=== PATIENT | female | born 1960 | race Caucasian/White ===

== ENCOUNTER → 2022-04-01 | Outpatient (CLI) | payer BC, SELFPAY ==
--- NOTE | 2022-04-01 | CYSPIN_PTH ---
PATIENT: CJ MO LOC: [facility] U#:[id number] AGE/SX: 61/F ROOM: RE04/01/[address]: Dr. Beatrice Haynes MD : 1960 BED: DIS: 04/01/2022 SPEC #: [id number] RECD: 04/02/22 08:42 STATUS: DEVON REQ #: [id number] FELIPE: 04/01/22 00:[address]: Beatrice Haynes DEPT: CYTOLOGY RECD BY: Luis Enrique Lehman ENTERED: 04/02/22 08:42 SP TYPE: CYSPIN FL OTHR DR: No Primary Care Phys Tissues: Urine Procedures: Pap Stain (control) Special Stain Group II Cytospin Fluid HEADER OPERATION: Not noted PRE-OP DIAGNOSIS: Gross hematuria TISSUE SUBMITTED: Urine for cytology DIAGNOSIS CYTOLOGY Urine for cytology (cytospin): Negative for malignant cells. See comment. AM:[email or web address] 04/02/2022 COMMENT The specimen primarily contains mesothelial cells. Clinical correlation is suggested. CYTOLOGY STUDY Slides are reviewed. CYTOLOGY GROSS Received is 15 ml of light yellow cloudy fluid labeled with the patient's name and and designated per the requisition as urine. Submitted for cytology preparation. / ewelina 04/01/2022 TC:5 CPT: 35143
[2022-04-01 16:33] LABS: Cytology, Body Fluid / CSF SEE PATHOLOGY REPORT
== END | disposition home or self-care (01) ==
PROVIDERS: Referring Provider Urology; Visit Provider Urology
DX: R31.0 Gross hematuria (principal)
CPT/HCPCS: 88108; 88313

== ENCOUNTER → 2022-04-15 | Outpatient (CLI) | payer BC, SELFPAY ==
--- NOTE | 2022-04-15 10:40 | RAD_ITS ---
INDICATION: L kidney stone EXAMINATION/TECHNIQUE: X-RAY - XR Abdomen 1 View COMPARISON: None FINDINGS: BOWEL GAS PATTERN: Non-obstructive. No bowel or stomach distention. FREE AIR: Not assessed on a single supine view. CALCIFICATIONS: 2 mm calcific density in the left hemiabdomen projecting over the left lower renal pole. BONES AND SOFT TISSUES: No acute pathology. OTHER: Surgical clips are seen within the pelvis. RAD/Abdomen Single View IMPRESSION: 2 mm calcific density in the left hemiabdomen projecting over the left lower renal pole is likely a punctate left renal calculus. This could also relate to calcification in the feces in the overlying large bowel. Electronically Signed: Arnie Purcell, at 15:55 EDT ,
== END | disposition home or self-care (01) ==
LOC: MTRAD 10:35
PROVIDERS: Referring Provider Urology; Visit Provider Urology
DX: N20.0 Calculus of kidney (principal)
CPT/HCPCS: 74018

== ENCOUNTER 2022-05-21 07:09 | Day surgery (SDC) | payer BC, SELFPAY ==
[2022-05-21] VITALS (9 sets, daily range): BP systolic 104–122; BP diastolic 35–76; PULSE 60–64; RESP 16; TEMP 36.1–36.6; O2SAT 91–99; BMI 30.6
[2022-05-21] MEDS: Lactated Ringers 1,000 ML 15 ML IV (07:37)
[2022-05-21] MEDS: Cefazolin 2 GM in 0.9% Normal Saline 100 ML IV (08:48)
[2022-05-21] MEDS: Lubricating Jelly 60 GM Tube 30 GM (09:02)
--- NOTE | 2022-05-21 09:18 | DCINST_ITS ---
Discharge Instructions Diet Discharge Diet: No restrictions Activity Discharge Activity: Return to Normal Activity Dressing / Incision Call your doctor if your incision/area has: Continuous Slow Oozing and Sudden Increased Bleeding Call your doctor if you observe: Fever of 101 or Higher, Inability to urinate and Inability to have a bowel movement Follow Up Care Please Follow Up With: Beatrice Haynes MD When: 2-3 weeks with KUB Test Results: Test results from this visit will be discussed in further detail at your follow- up appointment, if applicable. Discharge Plan Admission Attending Provider: Beatrice Haynes Primary Care Provider: JANEE ARREDONDO Discharge Orders/Prescriptions Prescriptions: New oxycodone-acetaminophen [oxycodone-acetaminophen] 5-325 mg tablet 1 tab PO Q8H PRN PRN (Reason: Pain) 3 Days Qty: 10 0RF phenazopyridine [Pyridium] 200 mg tablet 200 mg PO TID PRN PRN (Reason: Bladder Spasms) 7 Days Qty: 30 0RF Continued verapamil 180 mg tablet extended release 1 tab PO BID pantoprazole 20 mg tablet,delayed release (DR/EC) 20 mg PO BID Label Comments: take 1 tablet by mouth once daily nortriptyline 10 mg capsule 1 cap PO QHS Label Comments: take 1 capsule by mouth at bedtime hyoscyamine sulfate 0.125 mg tablet, sublingual 1 tab sublingual DAILY PRN (Reason: stomach cramps) Label Comments: dissolve 1 tablet under the tongue every 6 hours if needed albuterol sulfate 90 mcg/actuation HFA aerosol inhaler 2 inh INHALATION Q6H PRN (Reason: Wheezing) Label Comments: inhale 2 puffs by mouth every 6 hours if needed atenolol 50 mg tablet 1 tab PO BID loratadine 10 mg Tablet 10 mg PO DAILY Referrals / Follow Up: JANEE ARREDONDO [Other] Disposition Disposition (needs filled in before D/C Order can be placed): Home, Self Care
--- NOTE | 2022-05-21 10:26 | PCM.OPRPT ---
Report of Operation Date of Procedure: 05/21/22 Pre-Operative Diagnosis: Left renal calculus, urethral stenosis Post-Operative Diagnosis: Same Surgery/Procedure Performed:: Urethral dilation, cystoscopy, left renal extracorporal shockwave lithotripsy Surgeon: Beatrice Haynes Type of Anesthesia: General Specimen's removed: None Description of Procedure: The patient is a 61-year-old female who was unable to have a cystoscopy in the office secondary to urethral stricture with a left renal calculus who now presents for definitive intervention. Informed consent was obtained. The patient was taken to the operating room and placed on the lithotripsy table. Anesthesia monitored the head, neck, airway, IV access and vital signs throughout the case. Once anesthesia was appropriate ministered, the patient was placed into dorsal lithotomy position was prepped and draped in usual sterile fashion. The urethra was then sequentially dilated starting with 14 Upper Sorbian sound up to 28 Upper Sorbian. There was cracking of the urethra observed with minimal bleeding. At this time the cystoscope with 70 degree lens was inserted through the urethra under direct visualization into the urinary bladder. The bladder mucosa in its entirety was visualized and found to be without evidence of mass, erythema, ulceration or abnormality. There were no foreign bodies identified. Bilateral ureteral orifices were located in the correct anatomic position on the area of the trigone. At this time the patient's bladder was emptied and the cystoscope was removed. The patient was repositioned on the table and taken out of dorsal lithotomy position. The left lower pole stone was identified and broken with 3000 shocks. It appeared to be well fragmented at the conclusion of the case. She was then awakened and taken to the recovery room in good condition. There were no complications during this procedure. Grafts/Implants Used: None Complications None Admit VTE Documentation VTE Present on Admission: Yes VTE Mechan Device Prophylaxis: SCD's VTE Pharm Prophylaxis ordered?: No Reason prophylaxis not ordered:: Treatment Not Indicated
== END 2022-05-21 12:11 | disposition home or self-care (01) ==
LOC: SDC 07:11 → AC 07:12
PROVIDERS: Referring Provider Urology; Visit Provider Urology
PROC: (CPT 50590; principal; 2022-05-21 08:40)
DX: N20.0 Calculus of kidney (principal); N35.92 Unspecified urethral stricture, female; N39.46 Mixed incontinence; N95.2 Postmenopausal atrophic vaginitis; N39.0 Urinary tract infection, site not specified; R35.1 Nocturia; R39.16 Straining to void; Z87.19 Personal history of other diseases of the digestive system; Z97.3 Presence of spectacles and contact lenses; Z90.710 Acquired absence of both cervix and uterus
CPT/HCPCS: 50590; 53665; 00873; J7120; J2405

== ENCOUNTER → 2022-06-03 | Outpatient (CLI) | payer BC, SELFPAY ==
--- NOTE | 2022-06-03 09:50 | RAD_ITS ---
STUDY: X-RAY - ABDOMEN/PELVIS REASON FOR EXAM: Female, 61 years old. KIDNEY CALCULUS TECHNIQUE: Single AP view of the abdomen / pelvis. COMPARISON: Comparison is made with prior study dated 04/15/2022. FINDINGS: Normal visualized lung bases. There is a moderate amount of colonic fecal material. Surgical clips are seen in the left hemipelvis. The visualized liver, spleen and kidneys are grossly normal in size and morphology. Normal soft tissue structures. Normal visualized osseous structures. RAD/Abdomen Single View IMPRESSION: Normal x-ray examination of the abdomen and pelvis. Electronically Signed: Terrence Mejia MD at 15:16 EDT ,
== END | disposition home or self-care (01) ==
LOC: MTRAD 09:42
PROVIDERS: Referring Provider Urology; Visit Provider Urology
DX: N20.0 Calculus of kidney (principal)
CPT/HCPCS: 74018

== ENCOUNTER → 2025-09-19 | Outpatient (CLI) | payer MEDICARE, OTHER, SELFPAY ==
--- NOTE | 2025-09-19 12:17 | US_ITS ---
PROCEDURE: KIDNEY AND BLADDER 09/19/2025 REASON FOR EXAM: FLANK PAIN TECHNIQUE: Procedure Code: USKI Modality: US Procedure: KIDNEY AND BLADDER COMPARISON: None FINDINGS: Kidneys: Normal renal sizes, parenchymal thicknesses, and echotextures. [place]: No evidence of hydronephrosis. Cysts or Masses: None Other: 6 mm x 10 mm by 5 mm nonobstructive left intrarenal calculus. RIGHT Kidney Size: 11.4 cm x 6.6 cm x 4.3 cm Delete Cortical Thickness (if discernible): 13 mm (>6mm is normal) LEFT Kidney Size: 11.2 cm x 6 cm x 6.2 cm Cortical Thickness (if discernible): 13 mm (>6mm is normal) Urinary bladder: Prevoid volume: 586 mL postvoid volume: 223 mL. US/Kidney and Bladder IMPRESSION: Nonobstructive left intrarenal calculus. Postvoid residual. Reading Location: [id number]
--- NOTE | 2025-09-19 12:17 | US_ITS ---
PROCEDURE: KIDNEY AND BLADDER 09/19/2025 REASON FOR EXAM: FLANK PAIN TECHNIQUE: Procedure Code: USKI Modality: US Procedure: KIDNEY AND BLADDER COMPARISON: None FINDINGS: Kidneys: Normal renal sizes, parenchymal thicknesses, and echotextures. [place]: No evidence of hydronephrosis. Cysts or Masses: None Other: 6 mm x 10 mm by 5 mm nonobstructive left intrarenal calculus. RIGHT Kidney Size: 11.4 cm x 6.6 cm x 4.3 cm Delete Cortical Thickness (if discernible): 13 mm (>6mm is normal) LEFT Kidney Size: 11.2 cm x 6 cm x 6.2 cm Cortical Thickness (if discernible): 13 mm (>6mm is normal) Urinary bladder: Prevoid volume: 586 mL postvoid volume: 223 mL. US/Kidney and Bladder IMPRESSION: Nonobstructive left intrarenal calculus. Postvoid residual. Reading Location: [id number]
== END | disposition home or self-care (01) ==
LOC: US 12:14
PROVIDERS: PCP Nurse Practitioner Family; Referring Provider Urology; Visit Provider Urology
DX: R10.9 Unspecified abdominal pain (principal); Z87.442 Personal history of urinary calculi
CPT/HCPCS: 76770

== ENCOUNTER → 2025-10-02 | Outpatient (CLI) | payer MEDICARE, OTHER, SELFPAY ==
--- NOTE | 2025-10-02 15:30 | CYSPIN_PTH ---
PATIENT: CJ MO LOC: [facility] U#:[id number] AGE/SX: 65/F ROOM: RE10/02/[address]: Dr. Beatrice Haynes MD : 1960 BED: DIS: 10/02/2025 SPEC #: [id number] RECD: 10/02/25 15:30 STATUS: DEVON RETawanna #: [id number] FELIPE: 10/02/25 15:[address]: Beatrice Haynes DEPT: CYTOLOGY RECD BY: Romulo Taylor ENTERED: 10/03/25 10:41 SP TYPE: CYSPIN FL OTHR DR: Ramila Lauren, CLIENT ENGAGEMENT MANAGER-C Tissues: A - Urine Procedures: Pap Stain (control) Special Stain Group II Cytospin Fluid HEADER OPERATION: Not noted PRE-OP DIAGNOSIS: Gross hematuria TISSUE SUBMITTED: A- Urine for cytology - voided DIAGNOSIS CYTOLOGY A. Urine, voided (cytospin): - Atypical urothelial cells. - Acute inflammation. CYTOLOGY STUDY Slides are reviewed. CYTOLOGY GROSS A. Received is 25 ml of yellow-cloudy fluid labeled with the patient's name and and designated per the requisition as urine. Submitted for cytology preparation. 10/03/2025 CPT: 92335
[2025-10-02 18:01] LABS: Cytology, Body Fluid / CSF SEE PATHOLOGY REPORT
--- OUTSIDE RECORDS SUMMARY | 2025-10-02 18:01 | XMS RPT_ITS | CCD ---
Author Organization [facility] Care Team Providers Care Major Assembly Inspector Name Role Phone Derick Martinez MD, Kristi Simon Primary Care Provider LORSON LICENSED LOAN OFFICER-RESIDENTIAL GLAZIER, RAMILA Attending Unavail able LORSON LICENSED LOAN OFFICER-RESIDENTIAL GLAZIER, RAMILA Primary Care Unavail able LORSON LICENSED LOAN OFFICER-RESIDENTIAL GLAZIER, RAMILA Attending Unavail able LORSON LICENSED LOAN OFFICER-RESIDENTIAL GLAZIER, [place] Primary Care Unavail able LORSON LICENSED LOAN OFFICER-RESIDENTIAL GLAZIER, RAMILA Primary Care Physician [place] ANDREWS, Dr. Barron Attending Provider [phone] LORSON LICENSED LOAN OFFICER-RESIDENTIAL GLAZIER, RAMILA Attending Unavail able LORSON LICENSED LOAN OFFICER-RESIDENTIAL GLAZIER, RAMILA Primary Care Unavail able Beatrice Haynes Attending Unavailable Deepalison LAYOUT OPERATOR, [place] Primary Care Unavailable Beatrice Haynes Attending Unavailable Beatrice Haynes Referring Unavailable Beatrice Haynes Attending Unavailable Beatrice Haynes Referring Unavailable Lorson LAYOUT OPERATOR, [place] Primary Care Unavailable LORSON LICENSED LOAN OFFICER-RESIDENTIAL GLAZIER, RAMILA Primary Care Unavail able LORSON LICENSED LOAN OFFICER-RESIDENTIAL GLAZIER, RAMILA Attending Unavail able LORSON LICENSED LOAN OFFICER-RESIDENTIAL GLAZIER, RAMILA Primary Care Unavail able LORSON LICENSED LOAN OFFICER-RESIDENTIAL GLAZIER, RAMILA Attending Unavail able LORSON LICENSED LOAN OFFICER-RESIDENTIAL GLAZIER, RAMILA Primary Care Unavail able LORSON LICENSED LOAN OFFICER-RESIDENTIAL GLAZIER, RAMILA Attending Unavail able LORSON LICENSED LOAN OFFICER-RESIDENTIAL GLAZIER, RAMILA Attending Unavail able LORSON LICENSED LOAN OFFICER-RESIDENTIAL GLAZIER, [place] Primary Care Unavail able Medications Current Medications Medication Drug Class(es) Dates Sig (Normalized) Sig (Original) atenolol 50 mg oral tablet (15 sources) beta-Adrenergic Jany Start: 07-17-2024 End: 02-02-2026 atenolol 50 mg oral tablet Dose : 50 mg = 1 tab(s), Oral, BID, # 200 tab(s), 3 Refill(s), [id number], 165.1, cm, 07/12/25 9:08:00 EDT, Height, kg, 07/12/25 9:08:00 EDT, Dosing Weight Start Date: 07/12/25 Status: Ordered Medication Dispense Status: Completed Quantity: 200.0 Unit: tab(s) Total Allowed Fills: 4 Fills Dispensed: 0 Start: 05-14-2022 Atenolol 50 mg tablet Active 1 {tbl} PO TWICE A DAY May 14, 2022 12:00am Start: 07-26-2021 End: 07-21-2022 atenolol (TENORMIN) 50 mg ta blet TAKE 1 TABLET TWICE A DAY 180 tablet 3 07/21/2022 Active Comment on above: TAKE 1 TABLET TWICE A DAY Berberine Chloride 500 mg capsule (1 source) Start: 07-25-20 Berberine Chloride 500 mg capsule Active mg PO July 25, 2025 12:00am diphenhydrAMINE hydrochloride 25 mg oral capsule (8 sources) Histamine-1 Receptor Antagonist Start: 07-25-20 take 1 capsule by mouth at bedtime as needed Diphenhydramine Hcl (Benadryl) 25 mg capsule Active 25 mg PO AT BEDTIME as needed July 25, 2025 12:00am Start: 10-28-2006 take 1 dose by mouth once daily at bedtime Benadryl Dose : 50 mg =, PO, Once a day (at bedtime), 0 Refill(s), current med (Hx) Start Date: 10/28/06 Status: Ordered Medication Dispense Status: Completed Total Allowed Fills: 1 Fills Dispensed: 0 lisinopril 2.5 mg oral tablet (4 sources) Angiotensin Converting Enzyme Inhibitor Start: 02-07-2025 take 1 tablet by mouth once daily Lisinopril 2.5 mg tablet Active 2.5 mg PO daily July 25, 2025 12:00am Start: 10-18-2024 End: 02-15-2025 lisinopril 20 mg oral tablet Dose : 20 mg = 1 tab(s), Oral, qDay, # 30 tab(s), 3 Refill(s), Pharmacy: [facility] #[id number], 165, cm, 10/18/24 8:56:00 EST, Height, kg, 10/18/24 8:56:00 EST, Dosing Weight Start Date: 10/18/24 Stop Date: 02/15/25 Status: Ordered loratadine 10 mg oral tablet (15 sources) Start: 05-14-2022 take 1 mg by mouth once daily loratadine 10 mg oral tablet mg = tab(s), Oral, qDay, 0 Refill(s) Start Date: 11/11/23 Status: Ordered Medication Dispense Status: Completed Total Allowed Fills: 1 Fills Dispensed: 0 Comment on above: Take 10 mg by mouth once daily. metFORMIN hydrochloride 500 mg oral tablet (1 source) Biguanide Start: 10-18-2024 MetFORMIN (Eqv-Fortamet) 500 mg oral tablet, EXTENDED RELEASE Dose : 500 mg = 1 tab(s), Oral, qDay, Okay to substitute for generic Glucophage XR, # 30 tab(s), 2 Refill(s), Pharmacy: [facility] #[id number], 165, cm, 10/18/24 8:56:00 EST, Height, kg, 10/18/24 8:56:00 EST, Dosing Weight Start Date: 10/18/24 Status: Ordered metroNIDAZOLE 0.0075 mg/mg topical gel (2 sources) Nitroimidazole Antimicrobial Start: 2025 apply 1 dose topically twice daily metroNIDAZOLE 0.75% topical gel Apply 1 madhu, Topical, BID, # 45 gram(s), 0 Refill(s), Pharmacy: [facility] #[id number], 165, cm, 05/16/25 9:23:00 EDT, Height, 82, kg, 05/16/25 9:23:00 EDT, Dosing Weight Start Date: 06/19/25 Status: Ordered Medication Dispense Status: Completed Quantity: 45.0 Unit: g Total Allowed Fills: 1 Fills Dispensed: 0 Start: 02-07-2025 metroNIDAZOLE 0.75% topical gel Apply 1 madhu, Topical, BID, # 45 gram(s), 0 Refill(s), Pharmacy: [facility] #[id number], 165, cm, 02/07/25 9:03:00 EDT, Height, 81, kg, 02/07/25 9:03:00 EDT, Dosing Weight Start Date: 02/07/25 Status: Ordered Quantity: 45.0 Unit: g Repeat number: 1 [facility] Medication (1 source) Start: 05-16-2025 [facility] Medicatio n Berberine with cinnimon, 0 Refill(s), 81 Start Date: 05/16/25 Status: Ordered Medication Dispense Status: Completed Total Allowed Fills: 1 Fills Dispensed: 0 Probiotic (7 sources) Start: 07-12-2024 take 1 dose by mouth once daily Probiotic Oral, Daily, 0 Refill(s) Start Date: 07/12/24 Status: Ordered Medication Dispense Status: Completed Total Allowed Fills: 1 Fills Dispensed: 0 Start: 07-12-2024 Probiotic Oral , Daily, 0 Refill(s) Start Date: 07/12/24 Status: Ordered Repeat number: 1 Start: 07-12-2024 Probiotic Oral , Daily, 0 Refill(s) Start Date: 07/12/24 Status: Ordered verapamil hydrochloride 180 mg extended release oral tablet (16 sources) Calcium Channel Jany Start: 07-17-2024 End: 07-12-2025 take 1 tablet by mouth every hour, then take 1 tablet by mouth twice daily verapamil 180 mg/12 hours oral tablet, extended release Dose : 180 mg = 1 tab(s), Oral, BID, # 200 tab(s), 3 Refill(s), Pharmacy: [facility] #[id number], 165.1, cm, 07/12/25 9:08:00 EDT, Height, kg, 07/12/25 9:08:00 EDT, Dosing Weight Start Date: 07/12/25 Status: Ordered Medication Dispense Status: Completed Quantity: 200.0 Unit: tab(s) Total Allowed Fills: 4 Fills Dispensed: 0 Start: 05-14-2022 Verapamil 180 mg tablet extended release Active 1 {tbl} PO TWICE A DAY May 14, 2022 12:00am Start: 05-14-2022 End: 08-31-2022 verapamil SR (CALAN SR, ISOP TIN SR) 180 mg CR tablet Indications: Primary hypertension TAKE 1 TABLET TWICE A DAY WITH FOOD (CAN GET MORE REFILLS ONCE KEEP APPOINTMENT) 180 tablet 2 08/31/2022 Active Start: 09-05-2021 verapamil SR ( CALAN SR, ISOPTIN SR) 180 mg CR tablet TAKE 1 TABLET TWICE A DAY WITH FOOD 180 tablet 2 09/05/2021 Active Comment on above: TAKE 1 TABLET TWICE A DAY WITH FOOD TAKE 1 TABLET TWICE A DAY WITH FOOD (CAN GET MORE REFILLS ONCE KEEP APPOINTMENT) vitamin e 180 mg oral capsule (1 source) Start: 07-25-2025 Vitamin E Mixed 400 unit capsule Active U PO July 25, 2025 12:00am Completed/Discontinued Medications Medication Drug Class(es) Dates Sig (Normalized) Sig (Original) acetaminophen 325 mg / oxyCODONE hydrochloride 5 mg oral tablet (3 sources) Opioid Agonist Start: 05-21-2022 End: 07-25-2025 Oxycodone-Acetamino phen 5-325 mg tablet Discontinued 1 {tbl} PO EVERY 8 HOURS NEEDED as needed for Pain 10 3 0 May 21, 2022 July 25, 2025 9:24am Calculus of kidney Calculus of kidney Start: 05-21-2022 take 1 tablet by ludwin th every eight hours as needed Oxycodone-Acetaminophen Active 1 TABLET PO EVERY 8 HOURS NEEDED 10 3 May 21, 2022 [id number] 200 actuat albuterol 0.09 mg/actuat metered dose inhaler (3 sources) beta2-Adrenergic Agonist Start: 05-14-2022 End: 07-25-2025 Albuterol Sulfate 90 mcg/actuation HFA aerosol inhaler Discontinued 2 NMA INHALATION EVERY 6 HOURS as needed for Wheezing May 14, 2022 12:00am July 25, 2025 9:22am Start: 05-14-2022 Albuterol Sulf ate Active 2 INH INHALATION EVERY 6 HOURS May 14, 2022 12:00am furosemide 20 mg oral tablet (5 sources) Loop Diuretic take 1 tablet by mouth once daily as needed furosemide (LASIX) 20 mg tablet Take 20 mg by mouth once daily as needed. 0 Active Comment on above: Take 20 mg by mouth once daily as needed. hyoscyamine sulfate 0.125 mg oral tablet (15 sources) Start: 02-07-2025 End: 04-08-2025 hyoscyamine 0.125 mg oral tablet Dose : 0.125 mg = 1 tab(s), Oral, QID, PRN as needed for spasm, disolvable, # 120 EA, 1 Refill(s), Pharmacy: [facility] #[id number], 165, cm, 02/07/25 9:03:00 EDT, Height, kg, 02/07/25 9:03:00 EDT, Dosing Weight Start Date: 02/07/25 Stop Date: 04/08/25 Status: Ordered Medication Dispense Status: Completed Quantity: 120.0 Unit: EA Total Allowed Fills: 2 Fills Dispensed: 0 Start: 07-19-2024 End: 09-17-2024 hyoscyamine 0.125 mg oral ta blet Dose : 0.125 mg = 1 tab(s), Oral, QID, PRN as needed for spasm, disolvable, # 120 EA, 1 Refill(s), Pharmacy: [facility] #[id number], 165, cm, 07/19/24 8:49:00 EDT, Height, kg, 07/19/24 8:49:00 EDT, Dosing Weight Start Date: 07/19/24 Stop Date: 09/17/24 Status: Ordered Start: 05-14-2022 Hyoscyamine Simmons lfate 0.125 mg tablet, sublingual Active 1 {tbl} SL DAILY as needed for stomach cramps May 14, 2022 12:00am take 1 tablet by ludwin th every four hours as needed hyoscyamine (LEVSIN) 0.125 mg tablet Take 0.125 mg by mouth every 4 hours as needed. 0 Active Comment on above: Take 0.125 mg by ludwin th every 4 hours as needed. nortriptyline 10 mg oral capsule (3 sources) Tricyclic Antidepressant Start: 05-14-20 End: 07-25-20 take 1 capsule by mouth at bedtime Nortriptyline 10 mg capsule Discontinued 1 NMA PO AT BEDTIME May 14, 2022 12:00am July 25, 2025 9:24am Start: 05-14-2022 take 1 capsule by mo uth at bedtime Nortriptyline Active 1 CAP PO AT BEDTIME May 14, 2022 12:00am pantoprazole 20 mg delayed release oral tablet (3 sources) Proton Pump Inhibitor Start: 05-14-2022 End: 07-25-2025 take 1 tablet by mouth twice daily Pantoprazole 20 mg tablet,delayed release (DR/EC) Discontinued 20 mg PO TWICE A DAY May 14, 2022 12:00am July 25, 2025 9:24am phenazopyridine hydrochloride 200 mg oral tablet (3 sources) Start: 05-21-2022 End: 07-25-2025 take 1 tablet by mouth three times daily as needed for muscle spasms Phenazopyridine (Pyridium) 200 mg tablet Discontinued 200 mg PO 3 TIMES DAILY NEEDED as needed for Bladder Spasms 30 7 0 May 21, 2022 12:00am July 25, 2025 9:24am Problems Active Problems Problem Classification Problem Date Documented Da te Episodic/Chronic Abdominal pain (3 sources) Flank pain; Translations: [Unspecified abdominal pain] Onset: 09-20-2025 07-25-2025 Episodic Calculus of urinary tract (7 sources) Kidney stone; Translations: [Calculus of kidney] Onset: 07-25-2025 05-21-2022 Episodic Cardiac dysrhythmias (7 sources) Atrial tachycardia 01-27-2023 Chronic Cardiac dysrhythmias (5 sources) Palpitations; Translations: [Palpitations] 07-02-2021 Episodic Diabetes mellitus with complications (2 sources) Type 2 diabetes mellitus with other specified complication; Translations: [Type 2 diabetes mellitus with other specified complication] Onset: 05-07-2025 Chronic Diabetes mellitus without complication (6 sources) Type 2 diabetes mellitus; Translations: [Type 2 diabetes mellitus without complications] Onset: 01-29-2025 10-18-2024 Chronic Disorders of lipid metabolism (11 sources) Hyperlipidemia, unspecified; Translations: [Hyperlipidemia] Onset: 07-19-2024 Chronic Diverticulosis and diverticulitis (7 sources) Diverticular disease 01-27-2023 Chronic Essential hypertension (5 sources) Benign essential hypertension; Translations: [Essential (primary) hypertension] Onset: 07-09-2022 Chronic Heart valve disorders (12 sources) Mitral valve prolapse; Translations: [Nonrheumatic mitral (valve) prolapse] 06-26-2020 Chronic Malaise and fatigue (5 sources) Fatigue; Translations: [Other fatigue] 07-02-2021 Episodic Nonspecific chest pain (5 sources) Chest pain; Translations: [Chest pain, unspecified] 07-02-2021 Episodic Other and unspecified benign neoplasm (7 sources) Polyp of colon 01-27-2023 Episodic Other connective tissue disease (7 sources) Weakness of face muscles 05-11-2023 Episodic Other eye disorders (7 sources) Watery eye 05-11-2023 Episodic Other gastrointestinal disorders (2 sources) Irritable bowel syndrome 02-07-2025 Chronic Other inflammatory condition of skin (2 sources) Rosacea 02-07-2025 Chronic Other lower respiratory disease (5 sources) Dyspnea; Translations: [Shortness of breath] 07-02-2021 Episodic Other nutritional; endocrine; and metabolic disorders (7 sources) Weight gain 01-27-2023 Episodic Brenda-; endo-; and myocarditis; cardiomyopathy (except that caused by tuberculosis or sexually transmitted disease) (6 sources) Heart valve disorder; Translations: [Endocarditis, valve unspecified] 07-02-2021 Chronic Residual codes; unclassified (7 sources) Abnormal sensation 05-11-2023 Episodic Spondylosis; intervertebral disc disorders; other back problems (7 sources) Neck pain 05-11-2023 Episodic Unclassified (20 sources) Patient encounter status 05-11-2023 Past or Other Problems Problem Classification Problem Date Documented Da te Episodic/Chronic Diabetes mellitus without complication (6 sources) Hyperglycemia; Translations: [Impaired fasting glucose] Onset: 10-11-2024 07-07-2023 Episodic Residual codes; unclassified (11 sources) Past history of procedure; Translations: [Personal history of other medical treatment] Onset: 10-25-2006 07-02-2021 Episodic Residual codes; unclassified (6 sources) Non-smoker; Translations: [Other specified health status] Onset: 07-02-2021 07-02-2021 Episodic Results Test Name Value Interpretation Reference Range Facility CT ABDOMEN W/O CONTRASTon CT ABDOMEN W/O CONTRAST ORIGINAL EXAMINATION: CT ABDOMEN WITHOUT CONTRAST 09/28/2025 8:53 am TECHNIQUE: CT of the abdomen was performed without the administration of intravenous contrast. Multiplanar reformatted images are provided for review. Automated exposure control, iterative reconstruction, and/or weight based adjustment of the mA/kV was utilized to reduce the radiation dose to as low as reasonably achievable. COMPARISON: None. HISTORY: ORDERING SYSTEM PROVIDED HISTORY: Reason for Exam: nephrolithiasis FINDINGS: No acute abnormality in the visualized portions of the lower thorax. Tiny 2 mm pulmonary nodules in the right lower lobe which do not require follow-up per Fleischner society guidelines. No aggressive osseous lesions. Mild degenerative changes of the spine are noted. Mild hepatic steatosis with focal areas of fatty sparing along the gallbladder fossa. The gallbladder, spleen, pancreas, and adrenal glands are unremarkable. There is no intra-abdominal free air or fluid. The abdominal aorta is normal in caliber. No pathologically enlarged nodes. No acute GI tract abnormality. There are a few scattered colonic diverticula without evidence of diverticulitis. Visualized portions of the appendix are normal. Small fat containing umbilical hernia. The kidneys are similar in size. No hydronephrosis. Punctate stone is seen at the inferior pole of the left kidney. No ureteral stone is seen. No other contributory finding. IMPRESSION: 1. Punctate nonobstructive left nephrolithiasis. 2. Mild hepatic steatosis. I have personally reviewed the images of this examination and agree with the resident's findings and interpretation. Interpreted by: Georgina Serra MD Preliminary Report By: Mann Sosa Electronically signed By Georgina Serra MD Dictated Date: 09/28/2025 9:19:00 AM Prelim Date: 09/28/2025 4:33:48 PM Sign Date: 09/28/2025 4:33:48 PM Ordering Provider: RAMILA CHAPARRO RP Normal [facility] Kidney and Bladderon 025 Kidney and Bladder [facility] Imaging Services [address] [place] [address] [id number] Kidney and Bladder MR#: [id number] Acct: [id number] Name: ANA CRISTINA VANG Rep #: [id number] : 1960 F 65 From: Terrence singleton MD PCP: JUDI Rodriguez Status: REG CLI Study: Kidney and Bladder Date of Exam: 09/19/25 Exam# [id number] Ordering Dr: Beatrice Haynes MD PROCEDURE: KIDNEY AND BLADDER 09/19/2025 REASON FOR EXAM: FLANK PAIN TECHNIQUE: Procedure Code: USKI Modality: US Procedure: KIDNEY AND BLADDER COMPARISON: None FINDINGS: Kidneys: Normal renal sizes, parenchymal thicknesses, and echotextures. Sanger: No evidence of hydronephrosis. Cysts or Masses: None Other: 6 mm x 10 mm by 5 mm nonobstructive left intrarenal calculus. RIGHT Kidney Size: 11.4 cm x 6.6 cm x 4.3 cm Delete Cortical Thickness (if discernible): 13 mm (>6mm is normal) LEFT Kidney Size: 11.2 cm x 6 cm x 6.2 cm Cortical Thickness (if discernible): 13 mm (>6mm is normal) Urinary bladder: Prevoid volume: 586 mL postvoid volume: 223 mL. US/Kidney and Bladder IMPRESSION: Nonobstructive left intrarenal calculus. Postvoid residual. Reading Location: [id number] CC: JUDI Chaparro; Dr. Beatrice Haynes MD Chemical Engineering Technician: Signed Normal [facility] MR/BMS.[facility] 07-25-2025 MR/BMS.[facility] [address], [address] [place] [address] OFFICE VISIT Date of Service: 07/25/25 MR#: [id number] Acct: [id number] Name: ANA CRISTINA VANG Rep #: [id number] : 1960 Provider: Dr. Beatrice Jones i, MD Age/Sex: 65/F Location: [facility] [place] Status: Signed Intake Vital Signs 05/21/22 07:31 07/25/25 09:26 Height 5 ft 4 in 5 ft 4 in Weight: 178 lb BMI 30.5 BP 128/80 H Pulse 64 Intake Visit Reasons: Back Pain urine flow Chief Complaint: back pain and urine flow problems [employer] Laboratory Director Required: No Accompanied by: Self Is patient in pain?: Yes (back pain ) Pain scale (1-10): 4 Allergies No Known Allergies Allergy (Verified 07/25/25 09:22) Medications ???Medication ???Instructions ???Recorded ???Confirmed ???Type atenolol 50 mg tablet 1 tab PO BID 05/14/22 07/25/25 His tory hyoscyamine sulfate 0.125 mg 1 tab sublingual DAILY PRN stomach 05/14/22 07/25/25 History sublingual tablet cramps loratadine 10 mg tablet 10 mg PO DAILY 05/14/22 07/25/25 H istory verapamil 180 mg tablet,extended 1 tab PO BID 05/14/22 07/25/25 His tory release berberine chloride 500 mg capsule mg PO 07/25/25 07/25/25 History diphenhydramine HCl 25 mg capsule 25 mg PO QHS PRN 07/25/25 5 History (Benadryl) lisinopril 2.5 mg tablet 2.5 mg PO QDAY 07/25/25 07/25/25 H istory vitamin E mixed 400 unit capsule unit PO 07/25/25 07/25/25 History Have you fallen in the past year?: No Nurse's Note: having to push to get urine to come out and doesnt feel fully empty when done, with back pain. Bladder scan PVR 22cc. [facility] Medical History (Updated 07/25/25 @ 12:[address] Beatrice Haynes MD) Vaginal atrophy Urge incontinence Nocturia Overactive bladder Renal calculus Wears glasses Wears contact lenses History of diverticulitis Cardiology follow-up encounter History of irregular heartbeat PONV (postoperative nausea and vomiting) Surgical History Hx of tonsillectomy Hx of hysterectomy Hx of lithotripsy Social History Smoking Status: Never smoker HPI HPI Urology Chief Complaint: back pain and urine flow problems Details: ANA CRISTINA VANG, is a 65 F. She was last seen over 3 years ago following a renal extracorporal shockwave lithotripsy and urethral dilation for stenosis. She is up 3 times at night, pushing to make sure she is emptying. The urgency is worse. She is wearing mini-pads, 2 a day. She is voiding about 6 times during the day. There is occasional dysuria and Azo OTC resolves the symptoms. No actual infections. She is having occasional back pain. When she drinks more fluid it resolves. There is no fever, chills, nausea or vomiting. There is no hematuria. There is IBS with constipation. She stopped the vaginal estrogen cream. She is under significant stress with a compliance review at this time. ROS Const Constitutional: No chills, fatigue, fever(s), headache(s), night sweats, weakness, weight change, abnormal sleep pattern or change in appetite Eyes Eyes: No change in vision ENT ENT: No headache(s) or dry mouth Resp Respiratory: No cough, chest congestion, shortness of breath or wheezing Cardio Cardiology: Positive for other (No chest pain.); No shortness of breath, irregular heart rhythm or lightheadedness Gastro GI: Positive for other (No nausea.); No abdominal pain, change in bowel habits, constipation, diarrhea or vomiting Musc Musculoskeletal: No abnormal gait Skin Skin: No yellowing of the eye, lesions, itchy eyes, rash or skin ulcer Neuro Neurology: No abnormal gait, confusion, dizziness, weakness, headache(s) or memory loss Psych Psychiatric: No abnormal sleep pattern, No change in appetite, No confusion and No memory loss Endo Endocrine: No fatigue, increased thirst/drinking or weight change Aller/Imm Allergy/Immunologic : No itchy eyes or wheezing Froilan/Lymp Hematologic/Lymphat ic: No easy bleeding, easy bruising or enlarged lymph nodes Exam Const General: cooperative, healthy appearing, comfortable and no acute distress [facility] Head: normocephalic and atraumatic Ears: hearing grossly normal bilaterally and external ears normal Nose: external nose normal Eyes General: appearance normal, both eyes and all related structures Neck Neck: normal visual inspection and trachea midline Chest Chest palpation inspection: normal inspection of the chest Resp Effort Inspection: normal respiratory effort, able to speak in complete sentences and symmetric chest movement Cardio Rate: regular rate GI Inspection: normal to inspection Palpation: soft and nontender General: No CVA tenderness Skin General: no rashes or lesions noted N (more content not included)... Normal [facility] .GFRon 05-07-2025 Estimated Glomerular Filtration Rate 90 ml/min/1.73sqm Normal [facility] Comment on above: Result Comment: Stages of Chronic Kidney Disease (CKD) Stage Description eGFR(ml/min/1.73 sq.m.) CKD 1 Normal kidney function or >=90 normal kindney function with possible kidney damage (ex. Proteinuria) CKD 2 Kidney damage with mild loss 60-89 of kidney function CKD 3a Mild to moderate loss of kidney 45-59 function CKD 3b Moderate to severe loss of 30-44 of kindey function CKD 4 Severe loss of kidney function 15-29 CKD 5 Kidney failure <15 Note: (go live 2024) the eGFR calculation was updated to the 2020 CKD-EPI creatinine equation without a race factor to calculate the eGFR results. Performed By: #### A 1C, LIPID, GFR, CMP #### [address] [address] A1Con 05-07-2025 Glucose [Mass/Vol] 137 mg/dL Normal [facility] Comment on above: Result Comment: Marcy mated Average Glucose calculated by equation ((28.7xA1C)-46.7) Estimated average glucose (eAG) is a calculated value from Hemoglobin A1C and is community service representative of the average blood glucose level in the last 2-3 month period. Normal range: less than 114 mg/dL Performed By: #### A 1C, LIPID, GFR, CMP #### [address] [address] HbA1c (Bld) [Mass fraction] 6.4 % Normal 4.3-6.4 [facility] Comment on above: Performed By: #### A 1C, LIPID, GFR, CMP #### [address] [address] CMPon 05-07-2025 Albumin Level 3.9 G/dL Normal 3.4-4.8 [facility] Comment on above: Performed By: #### A 1C, LIPID, GFR, CMP #### [address] [address] Albumin/Globulin [Mass ratio] 1.0 {ratio} Low 1.1-2.5 [facility] Comment on above: Performed By: #### A 1C, LIPID, GFR, CMP #### [address] [address] ALP [Catalytic activity/Vol] 77 U/L Normal 40-135 [facility] Comment on above: Performed By: #### A 1C, LIPID, GFR, CMP #### [address] [address] ALT [Catalytic activity/Vol] 28 U/L Normal 14-59 [facility] Comment on above: Performed By: #### A 1C, LIPID, GFR, CMP #### [address] [address] AST [Catalytic activity/Vol] 24 U/L Normal 10-40 [facility] Comment on above: Performed By: #### A 1C, LIPID, GFR, CMP #### [address] [address] Bili Total 0.4 mg/dL Normal 0.2-1.0 [facility] Comment on above: Result Comment: Use of this assay is not recommended for patients undergoing treatment with eltrombopag due to the potential for falsely elevated results. Performed By: #### A 1C, LIPID, GFR, CMP #### [address] [address] BUN/Creatinine Ratio 22 ratio Normal 7-27 [facility] Comment on above: Performed By: #### A 1C, LIPID, GFR, CMP #### [address] [address] Calcium [Mass/Vol] 9.3 mg/dL Normal 8.4-10.2 [facility] Comment on above: Performed By: #### A 1C, LIPID, GFR, CMP #### [address] [address] Chloride [Moles/Vol] 100 mmol/L Normal 98-107 [facility] Comment on above: Performed By: #### A 1C, LIPID, GFR, CMP #### [address] [address] CO2 [Moles/Vol] 28 mmol/L Normal 23-31 [facility] Comment on above: Performed By: #### A 1C, LIPID, GFR, CMP #### [address] [address] Creatinine [Mass/Vol] 0.74 mg/dL Normal 0.51-0.95 [facility] Comment on above: Performed By: #### A 1C, LIPID, GFR, CMP #### [address] [address] Electrolyte Balance 9.0 mEq/L Normal 4.0-15.0 [facility] Comment on above: Performed By: #### A 1C, LIPID, GFR, CMP #### [address] [address] Globulin 4.0 G/dL Normal 2.7-4.4 [facility] Comment on above: Performed By: #### A 1C, LIPID, GFR, CMP #### [address] [address] Glucose [Mass/Vol] 127 mg/dL High 80-115 [facility] Comment on above: Performed By: #### A 1C, LIPID, GFR, CMP #### [address] [address] Potassium [Moles/Vol] 4.1 mmol/L Normal 3.5-5.1 [facility] Comment on above: Performed By: #### A 1C, LIPID, GFR, CMP #### [address] [address] Sodium [Moles/Vol] 137 mmol/L Normal 136-145 [facility] Comment on above: Performed By: #### A 1C, LIPID, GFR, CMP #### [address] [address] Total Protein 7.9 G/dL Normal 6.4-8.2 [facility] Comment on above: Performed By: #### A 1C, LIPID, GFR, CMP #### [address] [address] Urea nitrogen [Mass/Vol] 16 mg/dL Normal 7-18 [facility] Comment on above: Performed By: #### A 1C, LIPID, GFR, CMP #### [address] [address] LABORATORYOrdered By: SYSTEM SYSTEM on 05-07-2025 Albumin BCP dye [Mass/Vol] 3.9 G/dL Normal 3.4 - 4.8 G/dL AO ADM SS Albumin/Globulin [Mass ratio] 1.0 {ratio} Low 1.1 - 2.5 ratio AO ADM SS ALP [Catalytic activity/Vol] 77 U/L Normal 40 - 135 U/L AO ADM SS ALT With P-5'-P [Catalytic activity/Vol] 28 U/L Normal 14 - 59 U/L AO ADM SS AST With P-5'-P [Catalytic activity/Vol] 24 U/L Normal 10 - 40 U/L AO ADM SS Bilirubin [Mass/Vol] 0.4 mg/dL Normal 0.2 - 1 .0 mg/dL AO ADM SS Comment on above: Interpretive Data: U se of this assay is not recommended for patients undergoing treatment with eltrombopag due to the potential for falsely elevated results. Calcium [Mass/Vol] 9.3 mg/dL Normal 8.4 - 10. 2 mg/dL AO ADM SS Chloride [Moles/Vol] 100 mmol/L Normal 98 - 10 7 mmol/L AO ADM SS CO2 [Moles/Vol] 28 mmol/L Normal 23 - 31 mmol/L AO ADM SS Creatinine [Mass/Vol] 0.74 mg/dL Normal 0.51 - 0.95 mg/dL AO ADM SS Electrolyte Balance 9.0 mEq/L Normal 4.0 - 15 .0 mEq/L AO ADM SS Estimated Glomerular Filtration Rate 90 ml/min/1.73sqm Invalid Interpretation Code AO Chemistry S Comment on above: Interpretive Data: Stages of Chronic Kidney Disease (CKD) Stage Description eGFR(ml/min/1.73 sq.m.) CKD 1 Normal kidney function or >=90 normal kindney function with possible kidney damage (ex. Proteinuria) CKD 2 Kidney damage with mild loss 60-89 of kidney function CKD 3a Mild to moderate loss of kidney 45-59 function CKD 3b Moderate to severe loss of 30-44 of kindey function CKD 4 Severe loss of kidney function 15-29 CKD 5 Kidney failure <15 Note: (go live 2024) the eGFR calculation was updated to the 2020 CKD-EPI creatinine equation without a race factor to calculate the eGFR results. Globulin 4.0 G/dL Normal 2.7 - 4.4 G/dL AO ADM SS Glucose [Mass/Vol] 127 mg/dL High 80 - 115 mg/dL AO ADM SS Glucose [Mass/Vol] 137 mg/dL Invalid Interpretation Code AO Chemistry S Comment on above: Interpretive Data: E stimated average glucose (eAG) is a calculated value from Hemoglobin A1C and is community service representative of the average blood glucose level in the last 2-3 month period. Normal range: less than 114 mg/dL HbA1c (Bld) [Mass fraction] 6.4 % Normal 4.3 - 6.4 % AO ADM SS Potassium [Moles/Vol] 4.1 mmol/L Normal 3.5 - 5.1 mmol/L AO ADM SS Protein [Mass/Vol] 7.9 G/dL Normal 6.4 - 8.2 G/dL AO ADM SS Sodium [Moles/Vol] 137 mmol/L Normal 136 - 145 mmol/L AO ADM SS Urea nitrogen [Mass/Vol] 16 mg/dL Normal 7 - 18 mg/dL AO ADM SS Urea nitrogen/Creatinine [Mass ratio] 22 ratio Normal 7 - 27 ratio AO ADM SS LABORATORYOrdered By: David Bella on 05-07-2025 Cholesterol [Mass/Vol] 202 mg/dL High 0 - 200 mg/dL AO ADM SS Comment on above: Interpretive Data: C holesterol Reference Interval: Less than 200 Desirable 200-239 Borderline high risk 240 and above High risk Cholesterol in HDL [Mass/Vol] 48 mg/dL Normal 40 - 60 mg/dL AO ADM SS Cholesterol in LDL [Mass/Vol] 103 mg/dL Normal 0 - 130 mg/dL AO ADM SS Triglyceride [Mass/Vol] 256 mg/dL High 0 - 150 mg/dL AO ADM SS Comment on above: Interpretive Data: T riglyceride Reference Interval: Less than 150 Normal 150-199 Borderline high risk 200-499 High risk 500 or higher Very high risk LIPIDon 05-07-2025 Cholesterol [Mass/Vol] 202 mg/dL High 0-200 [facility] Comment on above: Result Comment: Chol esterol Reference Interval: Less than 200 Desirable 200-239 Borderline high risk 240 and above High risk Performed By: #### A 1C, LIPID, GFR, CMP #### [address] [address] Cholesterol in HDL [Mass/Vol] 48 mg/dL Normal 40-60 [facility] Comment on above: Performed By: #### A 1C, LIPID, GFR, CMP #### [address] [address] Cholesterol in LDL [Mass/Vol] 103 mg/dL Normal 0-130 [facility] Comment on above: Performed By: #### A 1C, LIPID, GFR, CMP #### [place] [address] [place], [place] [address] Triglyceride [Mass/Vol] 256 mg/dL High 0-150 [facility] Comment on above: Result Comment: Trig lyceride Reference Interval: Less than 150 Normal 150-199 Borderline high risk 200-499 High risk 500 or higher Very high risk Performed By: #### A 1C, LIPID, GFR, CMP #### [place] [address] [place], [place] [address] .GFRon 01-29-2025 Estimated Glomerular Filtration Rate 88 ml/min/1.73sqm Normal [facility] Comment on above: Result Comment: Stages of Chronic Kidney Disease (CKD) Stage Description eGFR(ml/min/1.73 sq.m.) CKD 1 Normal kidney function or >=90 normal kindney function with possible kidney damage (ex. Proteinuria) CKD 2 Kidney damage with mild loss 60-89 of kidney function CKD 3a Mild to moderate loss of kidney 45-59 function CKD 3b Moderate to severe loss of 30-44 of kindey function CKD 4 Severe loss of kidney function 15-29 CKD 5 Kidney failure <15 Note: (go live 2024) the eGFR calculation was updated to the 2020 CKD-EPI creatinine equation without a race factor to calculate the eGFR results. Performed By: #### C MP, LIPID, GFR #### [facility] [place] [address] [place], [place] [address] #### A1C #### [facility] [address] [place] [address] A1Con 01-29-2025 Glucose [Mass/Vol] 134 mg/dL Normal [place] [facility] Comment on above: Result Comment: Marcy mated Average Glucose calculated by equation ((28.7xA1C)-46.7) Estimated average glucose (eAG) is a calculated value from Hemoglobin A1C and is community service representative of the average blood glucose level in the last 2-3 month period. Normal range: less than 114 mg/dL Performed By: #### C MP, LIPID, GFR #### [facility] [place] [address] [place], [place] [address] #### A1C #### [facility] [address] [place] [address] HbA1c (Bld) [Mass fraction] 6.3 % High 4.0-6.0 [facility] Comment on above: Performed By: #### C MP, LIPID, GFR #### [facility] [place] [address] [place] [id number] #### A1C #### [facility] [address] [place], [place] [address]on 01-29-2025 Albumin Level 4.0 G/dL Normal 3.4-4.8 [facility] Comment on above: Performed By: #### C MP, LIPID, GFR #### [facility] [place] [address] [place] [id number] #### A1C #### [place] [address] Albumin/Globulin [Mass ratio] 1.1 {ratio} Normal 1.1-2.5 [facility] Comment on above: Performed By: #### C MP, LIPID, GFR #### [facility] [place] [address] [place] [id number] #### A1C #### [place] [id number] ALP [Catalytic activity/Vol] 66 U/L Normal 40-135 [facility] Comment on above: Performed By: #### C MP, LIPID, GFR #### [facility] [place] [address] [place] [id number] #### A1C #### [facility] [address] [place] [address] ALT [Catalytic activity/Vol] 21 U/L Normal 14-59 [facility] Comment on above: Performed By: #### C MP, LIPID, GFR #### [facility] [place] [address] [place] [id number] #### A1C #### [place] [id number] AST [Catalytic activity/Vol] 14 U/L Normal 10-40 [facility] Comment on above: Performed By: #### C MP, LIPID, GFR #### [facility] [place] [address] [place] [id number] #### A1C #### [address] [address] Bili Total 0.5 mg/dL Normal 0.2-1.0 [facility] Comment on above: Result Comment: Use of this assay is not recommended for patients undergoing treatment with eltrombopag due to the potential for falsely elevated results. Performed By: #### C MP, LIPID, GFR #### [facility] [place] [address] [place] [address] #### A1C #### [place] [address] BUN/Creatinine Ratio 27 ratio Normal 7-27 [facility] Comment on above: Performed By: #### C MP, LIPID, GFR #### [facility] [place] [address] [place] [address] #### A1C #### [place] [address] Calcium [Mass/Vol] 9.4 mg/dL Normal 8.4-10.2 [facility] Comment on above: Performed By: #### C MP, LIPID, GFR #### [facility] [place] [address] [place] [address] #### A1C #### [place] [id number] Chloride [Moles/Vol] 102 mmol/L Normal 98-107 [facility] Comment on above: Performed By: #### C MP, LIPID, GFR #### [facility] [place] [address] [place] [id number] #### A1C #### [place] [id number] CO2 [Moles/Vol] 26 mmol/L Normal 23-31 [facility] Comment on above: Performed By: #### C MP, LIPID, GFR #### [facility] [place] [address] [place] [address] #### A1C #### [place] [address] Creatinine [Mass/Vol] 0.75 mg/dL Normal 0.55-1.02 [facility] Comment on above: Result Comment: Test ing performed on Siemens Dimension EXL analyzer using a modified kinetic Josefa technique. Performed By: #### C MP, LIPID, GFR #### [facility] [place] [address] [place] [id number] #### A1C #### [place] [address] Electrolyte Balance 11.0 mEq/L Normal 4.0-15.0 [facility] Comment on above: Performed By: #### C MP, LIPID, GFR #### [facility] [address] [place] [address] #### A1C #### [place] [address] Globulin 3.7 G/dL Normal 1.5-3.8 [facility] Comment on above: Performed By: #### C MP, LIPID, GFR #### [facility] [address] [place] [address] #### A1C #### [place] [address] Glucose [Mass/Vol] 132 mg/dL High 80-115 [facility] Comment on above: Performed By: #### C MP, LIPID, GFR #### [facility] [place] [address] [place] [address] #### A1C #### [place] [address] Potassium [Moles/Vol] 4.4 mmol/L Normal 3.5-5.1 [facility] Comment on above: Performed By: #### C MP, LIPID, GFR #### [facility] [place] [address] [place] [id number] #### A1C #### [place] [address] Sodium [Moles/Vol] 139 mmol/L Normal 136-145 [facility] Comment on above: Performed By: #### C MP, LIPID, GFR #### [facility] [place] [address] [place], [place] [address] #### A1C #### [facility] [address] [place] [address] Total Protein 7.7 G/dL Normal 6.4-8.2 [facility] Comment on above: Performed By: #### C MP, LIPID, GFR #### [facility] [place] [address] [place] [id number] #### A1C #### [facility] [address] [place] [address] Urea nitrogen [Mass/Vol] 20 mg/dL High 7-18 [facility] Comment on above: Performed By: #### C MP, LIPID, GFR #### [facility] [place] [address] [place] [id number] #### A1C #### [place] [address] LIPIDon 01-29-2025 Cholesterol [Mass/Vol] 219 mg/dL High 0-200 [facility] Comment on above: Result Comment: Chol esterol Reference Interval: Less than 200 Desirable 200-239 Borderline high risk 240 and above High risk Performed By: #### C MP, LIPID, GFR #### [facility] [place] [address] [place] [id number] #### A1C #### [address] [address] Cholesterol in HDL [Mass/Vol] 62 mg/dL High 40-60 [facility] Comment on above: Performed By: #### C MP, LIPID, GFR #### [facility] [place] [address] [place], [place] [address] #### A1C #### [facility] [address] [place] [address] Cholesterol in LDL [Mass/Vol] 123 mg/dL Normal 0-130 [facility] Comment on above: Performed By: #### C MP, LIPID, GFR #### [facility] [place] [address] [place] [id number] #### A1C #### [facility] [address] [place] [address] Triglyceride [Mass/Vol] 168 mg/dL High 0-150 [facility] Comment on above: Performed By: #### C MP, LIPID, GFR #### [facility] [address] [place], [place] [address] #### A1C #### [address] [address] MALBRon 01-29-2025 U Creatinine 55.5 mg/dL Normal [facility] Comment on above: Performed By: #### M ALBR #### [address] [address] U Microalb 6.2 mg/L Normal [facility] Comment on above: Performed By: #### M ALBR #### [address] [address] U Ratio Alb/Cre 11.2 mg/G Normal 0.0-30.0 [facility] Comment on above: Performed By: #### M ALBR #### [address] [address] LABORATORYOrdered By: Chriss Gordon on 10-18-2024 Creatinine (U) [Mass/Vol] 57.5 mg/dL Normal 28.0 - 117.0 mg/dL AO ADM SS Protein (U) [Mass/Vol] 12 mg/dL High 0 - 11 mg/dL AO ADM SS U Ratio Prot/Creat 0.21 ratio Invalid Interpretation Code AO ADM SS RPCURon 10-18-2024 U Creatinine 57.5 mg/dL Normal 28.0-117.0 [facility] Comment on above: Performed By: #### R PCUR #### [address] [address] U Protein 12 mg/dL High 0-11 [facility] Comment on above: Performed By: #### R PCUR #### [address] [address] U Ratio Prot/Creat 0.21 ratio Normal [facility] Comment on above: Result Comment: resu lt calculated by rule [id number] (U Protein/U Creatinine) Performed By: #### R PCUR #### [address] [address] .GFRon 10-11-2024 GFR 85 ml/min/1.73sqm Normal [facility] Comment on above: Result Comment: GFR Population mean for , Non- Americans Ages 20-29 = 116 mL/min/1.73 sq.m. Ages 30-39 = 107 mL/min/1.73 sq.m. Ages 40-49 = 99 mL/min/1.73 sq.m. Ages 50-59 = 93 mL/min/1.73 sq.m. Ages 60-69 = 85 mL/min/1.73 sq.m. Ages 70+ = 75 mL/min/1.73 sq.m. Chronic Kidney Disease: Less than 60 mL/min/1.73 square meters End Stage Renal Disease: Less than 15 mL/min/1.73 square meters Performed By: #### C MP, LIPID, GFR #### [address] [address] GFR Non- 70 ml/min/1.73sqm Normal [facility] Comment on above: Result Comment: GFR Population mean for , Non- Americans Ages 20-29 = 116 mL/min/1.73 sq.m. Ages 30-39 = 107 mL/min/1.73 sq.m. Ages 40-49 = 99 mL/min/1.73 sq.m. Ages 50-59 = 93 mL/min/1.73 sq.m. Ages 60-69 = 85 mL/min/1.73 sq.m. Ages 70+ = 75 mL/min/1.73 sq.m. Chronic Kidney Disease: Less than 60 mL/min/1.73 square meters End Stage Renal Disease: Less than 15 mL/min/1.73 square meters Performed By: #### C MP, LIPID, GFR #### [address] [address] CMPon 10-11-2024 Albumin Level 3.9 G/dL Normal 3.4-4.8 [facility] Comment on above: Performed By: #### C MP, LIPID, GFR #### [address] [address] Albumin/Globulin [Mass ratio] 1.2 {ratio} Normal 1.1-2.5 [facility] Comment on above: Performed By: #### C MP, LIPID, GFR #### [address] [address] ALP [Catalytic activity/Vol] 71 U/L Normal 40-135 [facility] Comment on above: Performed By: #### C MP, LIPID, GFR #### [address] [address] ALT [Catalytic activity/Vol] 30 U/L Normal 14-59 [facility] Comment on above: Performed By: #### C MP, LIPID, GFR #### [address] [address] AST [Catalytic activity/Vol] 15 U/L Normal 10-40 [facility] Comment on above: Performed By: #### C MP, LIPID, GFR #### [address] [address] Bili Total 0.5 mg/dL Normal 0.2-1.0 [facility] Comment on above: Result Comment: Use of this assay is not recommended for patients undergoing treatment with eltrombopag due to the potential for falsely elevated results. Performed By: #### C MP, LIPID, GFR #### [address] [address] BUN/Creatinine Ratio 21 ratio Normal 7-27 [facility] Comment on above: Performed By: #### C MP, LIPID, GFR #### [address] [address] Calcium [Mass/Vol] 9.2 mg/dL Normal 8.4-10.2 [facility] Comment on above: Performed By: #### C MP, LIPID, GFR #### [address] [address] Chloride [Moles/Vol] 102 mmol/L Normal 98-107 [facility] Comment on above: Performed By: #### C MP, LIPID, GFR #### [address] [address] CO2 [Moles/Vol] 30 mmol/L Normal 23-31 [facility] Comment on above: Performed By: #### C MP, LIPID, GFR #### [address] [address] Creatinine [Mass/Vol] 0.82 mg/dL Normal 0.55-1.02 [facility] Comment on above: Result Comment: Test ing performed on Siemens Dimension EXL analyzer using a modified kinetic Josefa technique. Performed By: #### C MP, LIPID, GFR #### [address] [address] Electrolyte Balance 9.0 mEq/L Normal 4.0-15.0 [facility] Comment on above: Performed By: #### C MP, LIPID, GFR #### [address] [address] Globulin 3.2 G/dL Normal [facility] Comment on above: Performed By: #### C MP, LIPID, GFR #### [address] [address] Glucose [Mass/Vol] 145 mg/dL High 80-115 [facility] Comment on above: Performed By: #### C MP, LIPID, GFR #### [address] [address] Potassium [Moles/Vol] 4.3 mmol/L Normal 3.5-5.1 [facility] Comment on above: Performed By: #### C MP, LIPID, GFR #### [address] [address] Sodium [Moles/Vol] 141 mmol/L Normal 136-145 [facility] Comment on above: Performed By: #### C MP, LIPID, GFR #### [address] [address] Total Protein 7.1 G/dL Normal 6.4-8.2 [facility] Comment on above: Performed By: #### C MP, LIPID, GFR #### [place] [address] [place], [place] [address] Urea nitrogen [Mass/Vol] 17 mg/dL Normal 7-18 [facility] Comment on above: Performed By: #### C MP, LIPID, GFR #### [place] [address] [place], [place] [address] LABORATORYOrdered By: SYSTEM SYSTEM on 10-11-2024 Albumin BCP dye [Mass/Vol] 3.9 G/dL Normal 3.4 - 4.8 G/dL AO ADM SS Albumin/Globulin [Mass ratio] 1.2 {ratio} Normal 1.1 - 2.5 ratio AO ADM SS ALP [Catalytic activity/Vol] 71 U/L Normal 40 - 135 U/L AO ADM SS ALT With P-5'-P [Catalytic activity/Vol] 30 U/L Normal 14 - 59 U/L AO ADM SS AST With P-5'-P [Catalytic activity/Vol] 15 U/L Normal 10 - 40 U/L AO ADM SS Bilirubin [Mass/Vol] 0.5 mg/dL Normal 0.2 - 1 .0 mg/dL AO ADM SS Comment on above: Interpretive Data: U se of this assay is not recommended for patients undergoing treatment with eltrombopag due to the potential for falsely elevated results. Calcium [Mass/Vol] 9.2 mg/dL Normal 8.4 - 10. 2 mg/dL AO ADM SS Chloride [Moles/Vol] 102 mmol/L Normal 98 - 10 7 mmol/L AO ADM SS CO2 [Moles/Vol] 30 mmol/L Normal 23 - 31 mmol/L AO ADM SS Creatinine [Mass/Vol] 0.82 mg/dL Normal 0.55 - 1.02 mg/dL AO ADM SS Comment on above: Interpretive Data: T esting performed on CISSOID Dimension EXL analyzer using a modified kinetic Josefa technique. Electrolyte Balance 9.0 mEq/L Normal 4.0 - 15 .0 mEq/L AO ADM SS GFR/1.73 sq M.predicted among blacks MDRD (S/P/Bld) [Vol rate/Area] 85 ml/min/1.73sqm Invalid Interpretation Code AO Chemistry S Comment on above: Interpretive Data: GFR Population mean for , Non- Americans Ages 20-29 = 116 mL/min/1.73 sq.m. Ages 30-39 = 107 mL/min/1.73 sq.m. Ages 40-49 = 99 mL/min/1.73 sq.m. Ages 50-59 = 93 mL/min/1.73 sq.m. Ages 60-69 = 85 mL/min/1.73 sq.m. Ages 70+ = 75 mL/min/1.73 sq.m. Chronic Kidney Disease: Less than 60 mL/min/1.73 square meters End Stage Renal Disease: Less than 15 mL/min/1.73 square meters GFR/1.73 sq M.predicted among non-blacks MDRD (S/P/Bld) [Vol rate/Area] 70 ml/min/1.73sqm Invalid Interpretation Code AO Chemistry S Comment on above: Interpretive Data: GFR Population mean for , Non- Americans Ages 20-29 = 116 mL/min/1.73 sq.m. Ages 30-39 = 107 mL/min/1.73 sq.m. Ages 40-49 = 99 mL/min/1.73 sq.m. Ages 50-59 = 93 mL/min/1.73 sq.m. Ages 60-69 = 85 mL/min/1.73 sq.m. Ages 70+ = 75 mL/min/1.73 sq.m. Chronic Kidney Disease: Less than 60 mL/min/1.73 square meters End Stage Renal Disease: Less than 15 mL/min/1.73 square meters Globulin 3.2 G/dL Invalid Interpretation Code AO ADM SS Glucose [Mass/Vol] 145 mg/dL High 80 - 115 mg/dL AO ADM SS Potassium [Moles/Vol] 4.3 mmol/L Normal 3.5 - 5.1 mmol/L AO ADM SS Protein [Mass/Vol] 7.1 G/dL Normal 6.4 - 8.2 G/dL AO ADM SS Sodium [Moles/Vol] 141 mmol/L Normal 136 - 145 mmol/L AO ADM SS Urea nitrogen [Mass/Vol] 17 mg/dL Normal 7 - 18 mg/dL AO ADM SS Urea nitrogen/Creatinine [Mass ratio] 21 ratio Normal 7 - 27 ratio AO ADM SS LABORATORYOrdered By: Lavon Tse on 10-11-2024 Cholesterol [Mass/Vol] 218 mg/dL High 0 - 200 mg/dL AO ADM SS Comment on above: Interpretive Data: C holesterol Reference Interval: Less than 200 Desirable 200-239 Borderline high risk 240 and above High risk Cholesterol in HDL [Mass/Vol] 52 mg/dL Normal 40 - 60 mg/dL AO ADM SS Cholesterol in LDL [Mass/Vol] 129 mg/dL Normal 0 - 130 mg/dL AO ADM SS Triglyceride [Mass/Vol] 186 mg/dL High 0 - 150 mg/dL AO ADM SS Comment on above: Interpretive Data: T riglyceride Reference Interval: Less than 150 Normal 150-199 Borderline high risk 200-499 High risk 500 or higher Very high risk LIPIDon 10-11-2024 Cholesterol [Mass/Vol] 218 mg/dL High 0-200 [facility] Comment on above: Result Comment: Chol esterol Reference Interval: Less than 200 Desirable 200-239 Borderline high risk 240 and above High risk Performed By: #### C MP, LIPID, GFR #### [address] [address] Cholesterol in HDL [Mass/Vol] 52 mg/dL Normal 40-60 [facility] Comment on above: Performed By: #### C MP, LIPID, GFR #### [address] [address] Cholesterol in LDL [Mass/Vol] 129 mg/dL Normal 0-130 [facility] Comment on above: Performed By: #### C MP, LIPID, GFR #### [address] [address] Triglyceride [Mass/Vol] 186 mg/dL High 0-150 [facility] Comment on above: Result Comment: Trig lyceride Reference Interval: Less than 150 Normal 150-199 Borderline high risk 200-499 High risk 500 or higher Very high risk Performed By: #### C MP, LIPID, GFR #### [address] [address] LABORATORYOrdered By: SYSTEM SYSTEM on 08-02-2024 Glucose [Mass/Vol] 131 mg/dL Invalid Interpretation Code AO Chemistry S Comment on above: Interpretive Data: E stimated average glucose (eAG) is a calculated value from Hemoglobin A1C and is community service representative of the average blood glucose level in the last 2-3 month period. Normal range: less than 114 mg/dL HbA1c (Bld) [Mass fraction] 6.2 % Normal 4.3 - 6.4 % AO ADM SS .GFRon 07-19-2024 GFR 84 ml/min/1.73sqm Normal [facility] Comment on above: Result Comment: GFR Population mean for , Non- Americans Ages 20-29 = 116 mL/min/1.73 sq.m. Ages 30-39 = 107 mL/min/1.73 sq.m. Ages 40-49 = 99 mL/min/1.73 sq.m. Ages 50-59 = 93 mL/min/1.73 sq.m. Ages 60-69 = 85 mL/min/1.73 sq.m. Ages 70+ = 75 mL/min/1.73 sq.m. Chronic Kidney Disease: Less than 60 mL/min/1.73 square meters End Stage Renal Disease: Less than 15 mL/min/1.73 square meters Performed By: #### C MP, LIPID, GFR #### [address] [address] GFR Non- 69 ml/min/1.73sqm [facility] ([place]) Comment on above: Result Comment: GFR Population mean for , Non- Americans Ages 20-29 = 116 mL/min/1.73 sq.m. Ages 30-39 = 107 mL/min/1.73 sq.m. Ages 40-49 = 99 mL/min/1.73 sq.m. Ages 50-59 = 93 mL/min/1.73 sq.m. Ages 60-69 = 85 mL/min/1.73 sq.m. Ages 70+ = 75 mL/min/1.73 sq.m. Chronic Kidney Disease: Less than 60 mL/min/1.73 square meters End Stage Renal Disease: Less than 15 mL/min/1.73 square meters Performed By: #### C MP, LIPID, GFR #### [facility] [address] [address] CMPon 07-19-2024 Albumin Level 4.0 G/dL Normal 3.4-4.8 [facility] Comment on above: Performed By: #### C MP, LIPID, GFR #### [address] [address] Albumin/Globulin [Mass ratio] 1.1 {ratio} Normal 1.1-2.5 [facility]) Comment on above: Performed By: #### C MP, LIPID, GFR #### [address] [address] ALP [Catalytic activity/Vol] 70 U/L Normal 40-135 [facility] ([place]) Comment on above: Performed By: #### C MP, LIPID, GFR #### [address] [address] ALT [Catalytic activity/Vol] 31 U/L Normal 14-59 [facility] ([place]) Comment on above: Performed By: #### C MP, LIPID, GFR #### [address] [address] AST [Catalytic activity/Vol] 17 U/L Normal 10-40 [facility]) Comment on above: Performed By: #### C MP, LIPID, GFR #### [address] [address] Bili Total 0.4 mg/dL Normal 0.2-1.0 [facility]) Comment on above: Result Comment: Use of this assay is not recommended for patients undergoing treatment with eltrombopag due to the potential for falsely elevated results. Performed By: #### C MP, LIPID, GFR #### [address] [address] BUN/Creatinine Ratio 19 ratio Normal 7-27 [facility] ([place]) Comment on above: Performed By: #### C MP, LIPID, GFR #### [address] [address] Calcium [Mass/Vol] 9.3 mg/dL Normal 8.4-10.2 Pending sale to [facility] ([place]) Comment on above: Performed By: #### C MP, LIPID, GFR #### [address] [address] Chloride [Moles/Vol] 104 mmol/L Normal 98-107 [facility] ([place]) Comment on above: Performed By: #### C MP, LIPID, GFR #### [address] [address] CO2 [Moles/Vol] 28 mmol/L Normal 23-31 [facility] ([place]) Comment on above: Performed By: #### C MP, LIPID, GFR #### [address] [address] Creatinine [Mass/Vol] 0.83 mg/dL Normal 0.55-1.02 [facility] ([place]) Comment on above: Performed By: #### C MP, LIPID, GFR #### [address] [address] Electrolyte Balance 9.0 mEq/L Normal 4.0-15.0 Counts include 234 beds at the [facility] ([place]) Comment on above: Performed By: #### C MP, LIPID, GFR #### [address] [address] Globulin 3.6 G/dL [facility] ([place]) Comment on above: Performed By: #### C MP, LIPID, GFR #### [address] [address] Glucose [Mass/Vol] 140 mg/dL High 80-115 Pending sale to [facility] ([place]) Comment on above: Performed By: #### C MP, LIPID, GFR #### [address] [address] Potassium [Moles/Vol] 4.2 mmol/L Normal 3.5-5.1 [facility] ([place]) Comment on above: Performed By: #### C MP, LIPID, GFR #### [address] [address] Sodium [Moles/Vol] 141 mmol/L Normal 136-145 Pending sale to [facility] ([place]) Comment on above: Performed By: #### C MP, LIPID, GFR #### [facility] [address], [place] [address] Total Protein 7.6 G/dL Normal 6.4-8.2 [facility]) Comment on above: Performed By: #### C MP, LIPID, GFR #### [facility] [address], [place] [address] Urea nitrogen [Mass/Vol] 16 mg/dL Normal 7-18 [facility]) Comment on above: Performed By: #### C MP, LIPID, GFR #### [facility] [address], [place] [address] LABORATORYOrdered By: SYSTEM SYSTEM on 07-19-2024 Albumin BCP dye [Mass/Vol] 4.0 G/dL Normal 3.4 - 4.8 G/dL AO ADM SS Albumin/Globulin [Mass ratio] 1.1 {ratio} Normal 1.1 - 2.5 ratio AO ADM SS ALP [Catalytic activity/Vol] 70 U/L Normal 40 - 135 U/L AO ADM SS ALT With P-5'-P [Catalytic activity/Vol] 31 U/L Normal 14 - 59 U/L AO ADM SS AST With P-5'-P [Catalytic activity/Vol] 17 U/L Normal 10 - 40 U/L AO ADM SS Bilirubin [Mass/Vol] 0.4 mg/dL Normal 0.2 - 1 .0 mg/dL AO ADM SS Comment on above: Interpretive Data: U se of this assay is not recommended for patients undergoing treatment with eltrombopag due to the potential for falsely elevated results. Calcium [Mass/Vol] 9.3 mg/dL Normal 8.4 - 10. 2 mg/dL AO ADM SS Chloride [Moles/Vol] 104 mmol/L Normal 98 - 10 7 mmol/L AO ADM SS CO2 [Moles/Vol] 28 mmol/L Normal 23 - 31 mmol/L AO ADM SS Creatinine [Mass/Vol] 0.83 mg/dL Normal 0.55 - 1.02 mg/dL AO ADM SS Electrolyte Balance 9.0 mEq/L Normal 4.0 - 15 .0 mEq/L AO ADM SS GFR/1.73 sq M.predicted among blacks MDRD (S/P/Bld) [Vol rate/Area] 84 ml/min/1.73sqm Invalid Interpretation Code AO Chemistry S Comment on above: Interpretive Data: GFR Population mean for , Non- Americans Ages 20-29 = 116 mL/min/1.73 sq.m. Ages 30-39 = 107 mL/min/1.73 sq.m. Ages 40-49 = 99 mL/min/1.73 sq.m. Ages 50-59 = 93 mL/min/1.73 sq.m. Ages 60-69 = 85 mL/min/1.73 sq.m. Ages 70+ = 75 mL/min/1.73 sq.m. Chronic Kidney Disease: Less than 60 mL/min/1.73 square meters End Stage Renal Disease: Less than 15 mL/min/1.73 square meters GFR/1.73 sq M.predicted among non-blacks MDRD (S/P/Bld) [Vol rate/Area] 69 ml/min/1.73sqm Invalid Interpretation Code AO Chemistry S Comment on above: Interpretive Data: GFR Population mean for , Non- Americans Ages 20-29 = 116 mL/min/1.73 sq.m. Ages 30-39 = 107 mL/min/1.73 sq.m. Ages 40-49 = 99 mL/min/1.73 sq.m. Ages 50-59 = 93 mL/min/1.73 sq.m. Ages 60-69 = 85 mL/min/1.73 sq.m. Ages 70+ = 75 mL/min/1.73 sq.m. Chronic Kidney Disease: Less than 60 mL/min/1.73 square meters End Stage Renal Disease: Less than 15 mL/min/1.73 square meters Globulin 3.6 G/dL Invalid Interpretation Code AO ADM SS Glucose [Mass/Vol] 140 mg/dL High 80 - 115 mg/dL AO ADM SS Potassium [Moles/Vol] 4.2 mmol/L Normal 3.5 - 5.1 mmol/L AO ADM SS Protein [Mass/Vol] 7.6 G/dL Normal 6.4 - 8.2 G/dL AO ADM SS Sodium [Moles/Vol] 141 mmol/L Normal 136 - 145 mmol/L AO ADM SS Urea nitrogen [Mass/Vol] 16 mg/dL Normal 7 - 18 mg/dL AO ADM SS Urea nitrogen/Creatinine [Mass ratio] 19 ratio Normal 7 - 27 ratio AO ADM SS LABORATORYOrdered By: Lavon Tse on 07-19-2024 Cholesterol [Mass/Vol] 237 mg/dL High 0 - 200 mg/dL AO ADM SS Comment on above: Interpretive Data: C holesterol Reference Interval: Less than 200 Desirable 200-239 Borderline high risk 240 and above High risk Cholesterol in HDL [Mass/Vol] 52 mg/dL Normal 40 - 60 mg/dL AO ADM SS Cholesterol in LDL [Mass/Vol] 141 mg/dL High 0 - 130 mg/dL AO ADM SS Triglyceride [Mass/Vol] 222 mg/dL High 0 - 150 mg/dL AO ADM SS Comment on above: Interpretive Data: T riglyceride Reference Interval: Less than 150 Normal 150-199 Borderline high risk 200-499 High risk 500 or higher Very high risk LIPIDon 07-19-2024 Cholesterol [Mass/Vol] 237 mg/dL High 0-200 [facility]) Comment on above: Result Comment: Chol esterol Reference Interval: Less than 200 Desirable 200-239 Borderline high risk 240 and above High risk Performed By: #### C MP, LIPID, GFR #### [address] [address] Cholesterol in HDL [Mass/Vol] 52 mg/dL Normal 40-60 [facility] ([place]) Comment on above: Performed By: #### C MP, LIPID, GFR #### [address] [address] Cholesterol in LDL [Mass/Vol] 141 mg/dL High 0-130 [facility] Comment on above: Performed By: #### C MP, LIPID, GFR #### [address] [address] Triglyceride [Mass/Vol] 222 mg/dL High 0-150 [facility] Comment on above: Result Comment: Trig lyceride Reference Interval: Less than 150 Normal 150-199 Borderline high risk 200-499 High risk 500 or higher Very high risk Performed By: #### C MP, LIPID, GFR #### [address] [address] MA MAMMOGRAM SCREENING BILAT ERAL W/TOMOon 08-23-2023 MA MAMMOGRAM SCREENING BILATERAL W/GERONIMO ORIGINAL FROM: [facility] [address] [place] [address] PROCEDURE [place]: [place] [address] Home: PID#: [id number] Exam#: [id number] : 1960 Age: 63 TO: RAMILA CHAPARRO [facility]IDENT[facility] [address] [place], [place] [address] Fax: NO FAX EXAMINATION: SCREENING DIGITAL BILATERAL MAMMOGRAM WITH TOMOSYNTHESIS, 08/19/2023 10:21 am TECHNIQUE: Screening mammography of the bilateral breasts was performed with tomosynthesis. 2D standard and 3D tomosynthesis combination imaging performed through both breasts in the MLO and CC projection. Computer aided detection was utilized in the interpretation of this exam. COMPARISON: 05/07/2022, 02/05/2021 HISTORY: Breast cancer screening. FINDINGS: BREAST DENSITY: Scattered fibroglandular tissue There are no significant masses or calcifications. IMPRESSION: No mammographic evidence of malignancy. Continued screening with annual mammograms is recommended. Renny Ward calculations generated with the history provided report this patient's 10 year risk and lifetime risk for developing breast cancer at 3.6% and 7.8%, respectively. Based on this assessment tool, patients with a calculated lifetime risk at or above 20% may be candidates for supplemental breast MRI screening in addition to annual mammographic screening per the [employer]. BIRADS: MAMMOGRAM BI-RADS: 1: Negative RECALL: 1 year screening RECALL TYPE: mammo LETTER SENT: Normal BI-RADS 1 and 2 Interpreted by: Danny Rodriguez MD Preliminary Report By: Danny Rodriguez MD Electronically signed By Danny Rodriguez MD Dictated Date: 08/23/2023 5:53:27 PM Prelim Date: 08/23/2023 5:57:46 PM Sign Date: 08/23/2023 5:57:46 PM Ordering Provider: RAMILA CHAPARRO Pumper Helper: GURJIT MONTIEL RT(R) letter sent: Normal BI-RADS 1 and 2 Mammogram BI-RADS: 1 Negative Normal [facility]) CNOVon 07-15-2022 CNOV Office Visit (JAVY) ---- ANA CRISTINA VANG ([id number]) 1960 F Date Time Provider Department 07/15/22 3:45 PM LUCHO ADAMES During your visit today, we recorded the following information about you: Pulse Blood pressure Weight Height 63/minute 112/82 82.1 kg 1.651 m Lucho Adames DO 07/16/2022 5:58 AM Signed Referring Provider: Lucho Adames DO Date: July 15, 2022 Chief Complaint: Follow Up HISTORY OF PRESENT ILLNESS: Ana Cristina Vang is a 62 year old female who presents for Follow Up. ALLERGIES No Known Allergies PAST MEDICAL HISTORY: PAST MEDICAL HISTORY Diagnosis Date Chest pain in adult Diverticular disease of colon Fatigue Heart valve disease History of echocardiogram 10/25/2006 normal L ventricular systolic size AND function 1+ mitral 1+ pulmonic regurg trace TR History of stress test 10/25/2006 normal perfusion no evidence of ischemia or infarction minimal septal hypokinesis EF 51% Kidney stones MVP (mitral valve prolapse) Palpitations SOB (shortness of breath) PAST SURGICAL HISTORY Procedure Laterality Date ABLATION of cervix ABLATION kidney stone LITHOTRIPSY / 1 SIDE 2013 TONSILLECTOMY HX FAMILY HISTORY Problem Relation Age of Onset other (pacemaker) Mother COPD Father other (family hx of CAD,DM) Other SOCIAL HISTORY: Tobacco Use: Never Alcohol Use: Not Currently Drug Use: Not on file Employer And Job Title: None on file Years Of Education Completed: Not specified Marital Status: MEDICATIONS: Current Outpatient Medications Medication Sig verapamil SR (CALAN SR, ISOPTIN SR) 180 mg CR tablet TAKE 1 TABLET TWICE A DAY WITH FOOD atenolol (TENORMIN) 50 mg tablet TAKE 1 TABLET TWICE A DAY loratadine (CLARITIN) 10 mg tablet Take 10 mg by mouth once daily. furosemide (LASIX) 20 mg tablet Take 20 mg by mouth once daily as needed. hyoscyamine (LEVSIN) 0.125 mg tablet Take 0.125 mg by mouth every 4 hours as needed. No current facility-administer ed medications for this visit. I have personally reviewed the patients past medical history including social, family, surgical, diagnostics, and medications. REVIEW OF SYSTEMS: Review of Systems Constitutional: Negative for fatigue and fever. Respiratory: Negative for cough, chest tightness, shortness of breath and wheezing. Cardiovascular: Negative for chest pain, palpitations and leg swelling. Gastrointestinal: Negative for abdominal pain, constipation, diarrhea, nausea and vomiting. Endocrine: Negative for cold intolerance and heat intolerance. Musculoskeletal: Negative for arthralgias and myalgias. Skin: Negative for rash. Neurological: Negative for dizziness, seizures, syncope and light-headedness. Hematological: Does not bruise/bleed easily. Vitals: BP 112/82 (BP Position: Sitting) Pulse 63 Ht 165.1 cm (5' 5) Wt 82.1 kg (181 lb) BMI 30.12 kg/m? PHYSICAL EXAMINATION: BP 112/82 (BP Position: Sitting) Pulse 63 Ht 165.1 cm (5' 5) Wt 82.1 kg (181 lb) BMI 30.12 kg/m? Last 3 Encounter BP Readings: Date: BP: 07/15/2022 112/82 07/02/2021 142/80 06/26/2020 125/80 Last 3 Encounter Pulse Readings: Date: Pulse: 07/15/2022 63 07/02/2021 61 Last 3 Encounter Wt Readings: Date: Wt: 07/15/2022 82.1 kg (181 lb) 07/02/2021 80.7 kg (178 lb) 06/26/2020 81.2 kg (179 lb) Physical Exam Vitals reviewed. Constitutional: General: She is not in acute distress. Cardiovascular: Rate and Rhythm: Normal rate and regular rhythm. Pulses: Carotid pulses are 2+ on the right side and 2+ on the left side. Radial pulses are 2+ on the right side and 2+ on the left side. Femoral pulses are 2+ on the right side and 2+ on the left side. Popliteal pulses are 2+ on the right side and 2+ on the left side. Dorsalis pedis pulses are 2+ on the right side and 2+ on the left side. Posterior tibial pulses are 2+ on the right side and 2+ on the left side. Heart sounds: Murmur heard. Systolic murmur is present with a grade of 2/6. Comments: PMI not displaced. 2nd heart sound loud. Pulmonary: Effort: Pulmonary effort is normal. Breath sounds: Normal breath sounds. Abdominal: General: Abdomen is flat. Bowel sounds are normal. Palpations: Abdomen is soft. Tenderness: There is no abdominal tenderness. Musculoskeletal: Right lower leg: No edema. Left lower leg: No edema. Skin: General: Skin is warm. Findings: No rash or wound. Neurological: Mental Status: She is alert and oriented to person, place, and time. Coordination: Coordination is intact. LABS: Creatinine (mg/dL) Date Value 04/06/2022 0.55 No results found for: HB, HCT, WBC No results found for: CHOL, HDL, LDL, TG EKG: ____ DIAGNOSTIC TEST RESULTS: Recent Results (from the past 24 hour(s)) ECG COMPLETE Collection Time: 07/15/22 4:21 PM Result Value Re (more content not included)... Normal [facility] ECG COMPLETEon 07-15-2022 ECG COMPLETE Ventricular Rate : 63 BPM Atrial Rate : 63 BPM P-R Interval : 192 ms QRS Duration : 82 ms Q-T Interval : 422 ms QTC Calculation(Bazett) : 431 ms Calculated P [place] : 63 degrees Calculated R [place] : 71 degrees Calculated T [place] : 116 degrees NORMAL SINUS RHYTHM Confirmed by LUCHO ADAMES DO ([id number]) on 07/27/2022 3:41:06 PM NAME : ANA CRISTINA VANG PID : [id number] : 1960 Gender : Female Race : ORD : [id number] Procedure Date : Jul 15 2022 16:21:07 Edit Date : Jul 27 2022 15:41:10 Diagnosis: NORMAL SINUS RHYTHM Confirmed by LUCHO ADAMES DO ([id number]) on 07/27/2022 3:41:06 PM Test Reason : Location : [address] [place] [address] Overread By : LUCHO ADAMES DO Edited By : LUCHO ADAMES DO Referred By : LUCHO ADAMES Acquired by : [id number], Normal [facility] GERONIMO MAMMO SCREENINGon 05-07 GERONIMO MAMMO SCREENING BILATERAL DIGITAL SCREENING MAMMOGRAM TOMOSYNTHESIS WITH CAD: 05/07/2022 Ordering Physician: Kimmy Tamayo CNP CLINICAL: Routine screening. Comparison is made to exams dated: 02/05/2021 mammogram and 12/07/2019 mammogram - [facility]. There are scattered fibroglandular elements in both breasts that could obscure a lesion on mammography. Digital Breast Tomosynthesis was performed. Current study was also evaluated with a Computer Aided Detection (CAD) system. No significant masses, calcifications, or other findings are seen in either breast. There has been no significant interval change. IMPRESSION: NEGATIVE There is no mammographic evidence of malignancy. A 1 year screening mammogram is recommended. The false-negative rate of mammography is approximately 10%. Management of a palpable abnormality must be based upon clinical grounds. Tara Jones M.D. ear/penrad: 2 09:24:31 Pumper Helper: Karma BONNER(Abraham)(M), [facility] letter sent: Mammography Normal BI-RADS: 1 Negative Reported By: TARA JONES M.D. Signed By: TARA JONES M.D. [facility] [place] CREATININE Don 04-06-2022 Creatinine [Mass/Vol] 0.55 mg/dL Low 0.58-0.96 [facility] Comment on above: Order Comment: Speci men Type: BLOOD SPECIMEN Ordering Facility: Beatrice Haynes MD Address: [facility] [address], [place] [address] Performed By: #### C RET1 #### [facility] CLIA [id number] [address] [place] [address] [place] ESTIMATED GLOMERULAR FILTRATION RATE 104 mL/min/1.73m??? Normal >=60 [facility] Comment on above: Order Comment: Speci men Type: BLOOD SPECIMEN Ordering Facility: Beatrice Haynes MD Address: [facility] [address], [place] [address] Result Comment: Marcy mated Glomerular Filtration Rate (eGFR) is calculated using the 2020 CKD-EPI creatinine equation. This equation utilizes serum creatinine, sex, and age as parameters. The creatinine assay has traceable calibration to isotope dilution-mass spectrometry. Refer to KDIGO guidelines for clinical interpretation. In patients with unstable renal function, e.g. those with acute kidney injury, the eGFR may not accurately reflect actual GFR. Performed By: #### C RET1 #### [facility] CLIA [id number] [address] [place] [address] [facility] CT UROGRAM WO/W IVCONon 05-1 CT UROGRAM WO/W IVCON * * *Final Report* * * DATE OF EXAM: Apr 06 2022 3:59PM [facility] 0560 - CT UROGRAM WO/W IVCON / PROCEDURE REASON: gross hematuria * * * * Physician Interpretation * * * * EXAMINATION: CT ABDOMEN AND PELVIS WITHOUT AND WITH IV CONTRAST, INCLUDING EXCRETORY PHASE IMAGING (CT UROGRAM) 3D RECONSTRUCTIONS CLINICAL HISTORY: Gross hematuria. TECHNIQUE: CT urogram protocol including unenhanced, renal parenchymal phase and excretory phase renal imaging was obtained following IV contrast. Normal saline was also administered IV. No oral contrast was given. 3D image post-processing was performed and archived at the request of the referring physician, on the CT scanner workstation without concurrent physician supervision. MQ: CTU_2 Contrast: IV: 100 ml of Omnipaque 300 IV Saline: 100 ml of 0.9% NACL Solution Oral Contrast: None CT Radiation dose: Integrated dose-length product (DLP) for this visit = 1624 mGy*cm. CT Dose Reduction Employed: Automated exposure control(AEC) and iterative recon COMPARISON: None. FINDINGS: Lower thorax: Unremarkable. Kidneys and urinary tract: Right: There are no renal calculi or masses. The opacified calices, renal pelvis and ureter are normal without dilation, filling defect, or stricture. Left: There are small nonobstructing left renal calculi measuring up to 4 mm at the lower pole. No suspicious left renal mass. The opacified calices, renal pelvis and ureter are normal without dilation, filling defect, or stricture. Multiple surgical clips are present in the region of the left distal ureter. Bladder: No filling defect, calculus, focal or diffuse wall thickening. Abdomen: Stomach/Esophagus: No dilation or wall thickening. Bowel/Mesentery: There is colonic diverticulosis without diverticulitis. No dilated loops of bowel or wall thickening. Liver: Diffusely low attenuating compatible with fatty infiltration. No discrete. Gallbladder/Biliary : No bile duct dilation. Gallbladder appears normal. Spleen: No mass or splenomegaly. Pancreas: No mass or duct dilation. Adrenals: Normal. Pelvis: Appendix: Visualized and appears normal Lymph nodes: No abdominal or pelvic lymphadenopathy. Groin: Normal Reproductive/Retrop eritoneum: Hysterectomy. Vasculature: The celiac axis and SMA are patent. The portal vein and branches, splenic vein, SMV, and hepatic veins are patent. Arterial atherosclerotic disease without aneurysm. Bones/Soft Tissues: Mild-moderate left hip osteoarthritis. There are degenerative changes of the spine. No destructive bone lesion or acute osseous abnormality. Small fat-containing periumbilical hernia. Block Saw Operator (topogram) images: No additional findings. IMPRESSION: Small, nonobstructing left renal calculi. No hydronephrosis or bladder wall thickening. No filling defects in the contrast opacified portions of the collecting system or bladder. Hepatic steatosis. Chemical Engineering Technician: PSCNarciso Transcribe Date/Time: Apr 06 2022 4:15P Dictated by : JAIMEE GAR MD This examination was interpreted and the report reviewed and electronically signed by: JAIMEE GAR MD on Apr 06 2022 4:32PM EST [id number] Normal [facility] Cytology report of Body flui d Cyto stainon 04-01-2022 Cytology report Cyto stain Doc (Body fld) SEE PATHOLOGY REPORT [facility] Work Phone: Comment on above: Specimen submitted t o Anatomical Pathology Department for testing. OBSOLETEon 09-05-2021 OBSOLETE Refill (CARDUM) ---- ANA CRISTINA VANG ([id number]) 1960 F Date Time Provider Department 09/05/21 JACK FOUNTAIN During your visit today, we recorded the following information about you: Tosha Hanna 09/05/2021 7:33 AM Signed Pharmacy faxes requesting refill: Pending Prescriptions Disp Refills VERAPAMIL ER (SR) 180 MG TABLET,EXTENDED RELEASE 180 tablet 2 Sig: TAKE 1 TABLET TWICE A DAY WITH FOOD BABAK: Yes Date of last visit:07/02/2021 Phone #: [phone] (home) The patients preferred pharmacy has been captured for this encounter? yes Allergies As of Date: 09/05/2021 (No Known Allergies) Date Reviewed: 07/09/2021 Reviewed by: Lucho Adames DO - Fully Assessed Reason for Visit: Refill Request [94] Order(s):verapamil SR (CALAN SR, ISOPTIN SR) 180 mg CR tabletTAKE 1 TABLET TWICE A DAY WITH FOODDisp: 180 tabletRfl: 2 Prescriptions as of 09/05/2021 - verapamil SR (CALAN SR, ISOPTIN SR) 180 mg CR tablet TAKE 1 TABLET TWICE A DAY WITH FOOD - atenolol (TENORMIN) 50 mg tablet TAKE 1 TABLET TWICE A DAY - loratadine (CLARITIN) 10 mg tablet Take 10 mg by mouth once daily. - furosemide (LASIX) 20 mg tablet Take 20 mg by mouth once daily as needed. - hyoscyamine (LEVSIN) 0.125 mg tablet Take 0.125 mg by mouth every 4 hours as needed. Problem List As Of Date 09/05/2021 Noted Resolved MVP (mitral valve prolapse) [I34.1] SOB (shortness of breath) [R06.02] Palpitations [R00.2] History of stress test [Z92.89] 10/25/2006 History of echocardiogram [Z92.89] 10/25/2006 Heart valve disease [I38] Fatigue [R53.83] Chest pain in adult [R07.9] Non-smoker [Z78.9] 07/02/2021 Prescriptions ordered this encounter Disp Refills Start End VERAPAMIL ER (SR) 180 MG TABLET,EXTE* 180 * 2 09/05/2021 Sig: TAKE 1 TABLET TWICE A DAY WITH FOOD Medications Discontinued During This Encounter Prescriptions - verapamil SR (CALAN SR, ISOPTIN SR) 180 mg CR tablet (Discontinued) TAKE 1 TABLET TWICE A DAY WITH FOOD Encounter Status:Closed by JACK FOUNTAIN on 09/05/21 Normal [facility] Vital Signs Date Time Vital Sign Value Performing Clinician Reid buchanan 07-25-2025 09:26-0400 Body height 162.[address] Beatrice Haynes MD Work Phone: [facility] 07-25-2025 09:26-0400 Body mass index (BMI) [Ratio] 30.5 kg/m2 Dr. Beatrice Haynes MD Work Phone: [facility] 07-25-2025 09:26-0400 Body weight 80.[address] Beatrice Haynes MD Work Phone: [facility] 07-25-2025 09:26-0400 Diastolic blood pressure 80 mm[Hg] Dr. Beatrice Haynes MD Work Phone: [facility] [facility] 07-25-2025 09:26-0400 Heart rate 64 /min Dr. Beatrice Haynes MD Work Phone: [facility] 07-25-2025 09:26-0400 Systolic blood pressure 128 mm[Hg] Dr. Beatrice Haynes MD Work Phone: [facility] 09-07-2024 08:23-0400 Body height 165 cm RAMILA CHAPARRO LICENSED LOAN OFFICER-RESIDENTIAL GLAZIER [facility] 09-07-2024 08:23-0400 Body weight 81.6 kg RAMILA CHAPARRO LICENSED LOAN OFFICER-RESIDENTIAL [employer]LAZIER [facility] 09-07-2024 08:23-0400 Body weight 29.97 kg/m2 RAMILA CHAPARRO LICENSED LOAN OFFICER-RESIDENTIAL GLAZIER [facility] 07-15-2022 16:18-0400 Body height 165.1 cm Lucho Echograph Work Phone: [facility] 07-15-2022 16:18-0400 Body weight 82.1 kg Lucho Gross DO Work Phone: [facility] 07-15-2022 16:18-0400 Diastolic blood pressure 82 mm[Hg] Lucho Gross DO Work Phone: [facility] 07-15-2022 16:18-0400 Heart rate 63 /min Lucho Gross DO Work Phone: [facility] 07-15-2022 16:18-0400 Systolic blood pressure 112 mm[Hg] Lucho Gross DO Work Phone: [facility] 05-21-2022 11:45-0400 Body temperature 96.9 [degF] [facility] Work Phone: 05-21-2022 11:45-0400 Diastolic blood pressure 76 mm[Hg] [facility] Work Phone: 05-21-2022 11:45-0400 Heart rate 60 /min [facility] Work Phone: 05-21-2022 11:45-0400 Respiratory rate 16 /min [facility] Work Phone: 05-21-2022 11:45-0400 SaO2% (BldA) [Mass fraction] 98 % [facility] Work Phone: 05-21-2022 11:45-0400 Systolic blood pressure 104 mm[Hg] [facility] Work Phone: 05-21-2022 07:31-0400 Body height 162.[address] [facility] Work Phone: 05-21-2022 07:31-0400 Body mass index (BMI) [Ratio] 30.6 kg/m2 [facility] Work Phone: 05-21-2022 07:31-0400 Body weight [address] [facility] Work Phone: Encounters Encounter Date Encounter Type Care Provider Facility Start: 10-10-2025 ambulatory Beatrice Haynes Facility: [facility] Start: 09-28-2025 End: 09-28-2025 ambulatory RAMILA LORSON LICENSED LOAN OFFICER-RESIDENTIAL GLAZIER Facility:[facility] Start: 09-28-2025 End: 09-28-2025 Patient encounter procedure RAMILA CHAPARRO LICENSED LOAN OFFICER-RESIDENTIAL [employer] Start: 09-19-2025 End: 09-19-2025 ambulatory Ramila Chaparro LAYOUT OPERATOR Facility:[facility] Start: 07-25-2025 End: 07-25-[address] Beatrice Haynes MD [facility] Work Phone: Start: 07-25-2025 End: 07-25-2025 ambulatory Beatrice Haynes -[facility] Start: 05-22-2025 Non-patient / Non-visit Dr. Beatrice valdez MD -[facility] Work Phone: Start: 05-07-2025 End: 05-11-2025 ambulatory RAMILA CHAPARRO LICENSED LOAN OFFICER-RESIDENTIAL GLAZIER Facility:[facility] Start: 05-07-2025 End: 05-11-2025 Outreach Lab RAMILA CHAPARRO LICENSED LOAN OFFICER-RESIDENTIAL GLAZIER [facility] Start: 01-29-2025 End: 01-29-2025 ambulatory RAMILA CHAPARRO LICENSED LOAN OFFICER-RESIDENTIAL GLAZIER Facility:[facility] Start: 10-18-2024 End: 10-22-2024 ambulatory RAMILA CHAPARRO LICENSED LOAN OFFICER-RESIDENTIAL GLAZIER Facility:[facility] Start: 10-18-2024 End: 10-22-2024 Outreach Lab RAMILA CHAPARRO LICENSED LOAN OFFICER-RESIDENTIAL GLAZIER [facility] Start: 10-11-2024 End: 10-15-2024 ambulatory RAMILA CHAPARRO LICENSED LOAN OFFICER-RESIDENTIAL GLAZIER Facility:[facility] Start: 10-11-2024 End: 10-15-2024 Outreach Lab RAMILA CHAPARRO LICENSED LOAN OFFICER-RESIDENTIAL GLAZIER [facility] Start: 09-07-2024 End: 09-07-2024 Patient encounter procedure RAMILA CHAPARRO LICENSED LOAN OFFICER-RESIDENTIAL GLAZIER [facility] Start: 08-02-2024 End: 08-06-2024 Outreach Lab RAMILA CHAPARRO LICENSED LOAN OFFICER-RESIDENTIAL GLAZIER [facility] Start: 07-19-2024 End: 07-23-2024 ambulatory RAMILA CHAPARRO LICENSED LOAN OFFICER-RESIDENTIAL GLAZIER Facility:[facility] Start: 07-19-2024 End: 07-23-2024 Outreach Lab RAMILA CHAPARRO LICENSED LOAN OFFICER-RESIDENTIAL GLAZIER [facility] Start: 08-19-2023 End: 08-19-2023 ambulatory RAMILA CHAPARRO LICENSED LOAN OFFICER-RESIDENTIAL GLAZIER Facility:[facility] Start: 08-31-2022 Refill Jack shahid LICENSED LOAN OFFICER.RESIDENTIAL GLAZIER Work Phone: [facility] Comment on above: Refill Request Start: 07-21-2022 Refill Esther López LICENSED LOAN OFFICER.RESIDENTIAL GLAZIER Work Phone: [facility] Comment on above: Refill Request Start: 07-15-2022 End: 07-15-2022 Patient encounter procedure Lucho Adames DO Work Phone: [facility] Comment on above: Heart valve disease (Primary Dx); Essential hypertension, benign; History of stress test; Non-smoker Start: 06-03-2022 End: 06-03-2022 Patient encounter procedure [facility] Start: 05-21-2022 End: 05-21-2022 Admission to same day surgery center [facility] Start: 05-07-2022 End: 05-07-2022 Subsequent hospital visit by physician Kimmy Tamayo RESIDENTIAL GLAZIER Work Phone: [facility] Comment on above: Z12.31 Start: 04-15-2022 End: 04-15-2022 Patient encounter procedure [facility] Start: 04-06-2022 End: 04-06-2022 Subsequent hospital visit by physician [facility] Cat Scan Start: 04-01-2022 End: 04-01-2022 Patient encounter procedure [facility], Specimen Procedures Date Procedure Procedure Detail Performing Clinician Start: 06-03-2022 Diagnostic radiography of abdomen Start: 05-21-2022 Extracorporeal shockwave lithotripsy Start: 05-21-2022 Kidney stone (disorder) RAMILA JACOBSONSERVANDO LICENSED LOAN OFFICER-RESIDENTIAL GLAZIER Start: 05-07-2022 Mammography uLcho Adames DO Work Phone: Start: 04-15-2022 Diagnostic radiography of abdomen Start: 02-05-2021 Mammography Kimmy Tamayo RESIDENTIAL GLAZIER Work Phone: Start: 04-21-2018 Colonoscopy RAMILA CHAPARRO LICENSED LOAN OFFICER-RESIDENTIAL GLAZIER Start: 04-15-2016 Kidney stone (disorder) RAMILA CHAPARRO LICENSED LOAN OFFICER-RESIDENTIAL GLAZIER Start: 10-22-2006 Hysterectomy RAMILA JACOBSONSERVANDO LICENSED LOAN OFFICER-RESIDENTIAL GLAZIER History of total hysterectomy History of total hysterectomy RAMILA JACOBSONSERVANDO LICENSED LOAN OFFICER-RESIDENTIAL GLAZIER Plan of Treatment Date Care Activity Detail Author Start: 05-07-2023 Mammography MAMMOGRAM [facility] Start: 07-23-2022 Influenza vaccination [facility] Start: 05-21-2022 Anes lithotrp xtrcorp shock wave w/o water bath ANESTH KIDNEY STONE DESTRUCT [facility] Work Phone: Start: 05-21-2022 Dilat female urethra general/cndj spinal anes DILATION OF URETHRA [facility] Work Phone: Start: 05-21-2022 Lithotripsy xtrcorp shock wave FRAGMENTING OF KIDNEY STONE [facility] Work Phone: Start: 05-21-2022 Patient discharge [facility] Work Phone: Start: 02-05-2022 Mammography MAMMOGRAM [facility] Start: 11-22-2021 DEPRESSION ASSESSMENT DEPRESSION ASSESSMENT [facility] Start: 2009 SHINGRIX VACCINE (1 of 2) SHINGRIX VACCINE (1 of 2) [facility] Start: 2004 COLOGUARD (FIT-DNA) COLOGUARD (FIT-DNA) [facility] Start: 2004 Colonoscopy COLONOSCOPY [facility] Start: 2004 COLORECTAL CANCER SCREENING COLORECTAL CANCER SCREENING [facility] Start: [address] COLONOGRAPHY [facility] Start: 2004 DIABETES SCREEN DIABETES SCREEN [facility] Start: 2004 FECAL OCCULT BLOOD FECAL OCCULT BLOOD [facility] Start: 2004 LIPID SCREEN LIPID SCREEN [facility] Start: 2004 SIGMOIDOSCOPY SIGMOIDOSCOPY [facility] Start: 1999 Mammography MAMMOGRAM [facility] Start: 1989 HPV TESTING HPV TESTING [facility] Start: 1980 PAP TESTING PAP TESTING [facility] Start: 1978 Urine microalbumin profile DTAP,TDAP,TD (1 - Tdap) [facility] Start: 1977 ANNUAL PCP TEAM CHRONIC DISEASE VISIT ANNUAL PCP TEAM CHRONIC DISEASE VISIT [facility] Start: 1977 BP CONTROLLED (<130/80) BP CONTROLLED (<130/80) [facility] Start: 1977 HEPATITIS C SCREENING HEPATITIS C SCREENING [facility] Start: 1977 HIV SCREENING HIV SCREENING [facility] Start: 1971 Adult depression screening assessment DEPRESSION SCREENING [facility] Start: 1964 COVID-19 VACCINE (#1) COVID-19 VACCINE (#1) [facility] Start: 1959 COVID-19 VACCINE (#1) COVID-19 VACCINE (#1) [facility] ECG COMPLETE ECG COMPLETE ECG Routine Essential hypertension, benign 07/15/2022 4:21 PM EDT [facility] Work Phone: Patient referral [facility] Work Phone: US Kidney - bilatera l and Urinary bladder [facility] Payers Date Payer Category Payer Self-pay [id number] 2025 Private Health Insurance [id number] 2025 Unknown [id number] 2024 Medicare [id number] 2024 Medicare [id number] 2023 Unknown [id number] 2019 Unknown [employer] PPO [id number] 2019-Present [phone] [address] [place] [address] PPO [id number] 2019 Unknown [employer] PPO [id number] 2019-Present [phone] [address] [place] [address] PPO [id number] 1959 Unknown [id number] 1959 Unknown [id number] 1959 Unknown [id number] 1959 Unknown [id number] 1959 Unknown [id number] 1959 Unknown [id number] 1959 Unknown [id number] 27 Unknown [id number] Unknown [id number] 62 Unknown [id number] 62 Unknown [id number] 62 Social History Date Type Detail Facility [facility] Work Phone: Start: 1960 Sex Assigned At Female W [facility] Start: 06-13-2020 End: 05-16-2025 Tobacco smoking status TXIS Never smoked tobacco [facility] Start: 06-13-2020 End: 07-02-2021 Tobacco use and exposure Smokeless tobacco non-user [facility] Start: 07-02-2021 Alcohol intake Ex-drinker (finding) [facility] Start: 1960 Sex Assigned At Not on file [facility] Start: 03-22-2022 End: 07-15-2022 Exposure to SARS-CoV-2 (event) Not sure [facility] Start: 05-14-2022 Tobacco smoking stat [facility] Unknown if ever smoked [facility] Work Phone: Sex Assigned At [facility] Start: 10-19-2006 Sex Female (finding) [facility] Goals Date Patient Goal Desired Activity /State Mental Status Date Assessment Result Facility 05-21-2022 Cognitive function Voice/Name;Touch/Shaki ng [facility] Work Phone: Clinical Notes 04-06-2022 to 09-28-2025 Note Date & Type Note Facility 09-28-2025 Note Exam Date Time Procedure Performing Provider Status 09/28/25 8:[address] Abdomen w/o Contrast GEORGINA SERRA MD; Auth (Verified) [id number] ORIGINAL EXAMINATION: CT ABDOMEN WITHOUT CONTRAST 09/28/2025 8:53 am TECHNIQUE: CT of the abdomen was performed without the administration of intravenous contrast. Multiplanar reformatted images are provided for review. Automated exposure control, iterative reconstruction, and/or weight based adjustment of the mA/kV was utilized to reduce the radiation dose to as low as reasonably achievable. COMPARISON: None. HISTORY: ORDERING SYSTEM PROVIDED HISTORY: Reason for Exam: nephrolithiasis FINDINGS: No acute abnormality in the visualized portions of the lower thorax. Tiny 2 mm pulmonary nodules in the right lower lobe which do not require follow-up per Fleischner society guidelines. No aggressive osseous lesions. Mild degenerative changes of the spine are noted. Mild hepatic steatosis with focal areas of fatty sparing along the gallbladder fossa. The gallbladder, spleen, pancreas, and adrenal glands are unremarkable. There is no intra-abdominal free air or fluid. The abdominal aorta is normal in caliber. No pathologically enlarged nodes. No acute GI tract abnormality. There are a few scattered colonic diverticula without evidence of diverticulitis. Visualized portions of the appendix are normal. Small fat containing umbilical hernia. The kidneys are similar in size. No hydronephrosis. Punctate stone is seen at the inferior pole of the left kidney. No ureteral stone is seen. No other contributory finding. IMPRESSION: 1. Punctate nonobstructive left nephrolithiasis. 2. Mild hepatic steatosis. I have personally reviewed the images of this examination and agree with the resident's findings and interpretation. Interpreted by: Georgina Serra MD Preliminary Report By: Mann Sosa Electronically signed By Georgina Serra MD Dictated Date: 09/28/2025 9:19:00 AM Prelim Date: 09/28/2025 4:33:48 PM Sign Date: 09/28/2025 4:33:48 PM Ordering Provider: RAMILA CHAPARRO RP [facility]10-10-2022 Miscellaneous Notes* Telephone Encounter - Whit Guerra MA - 08/31/2022 8:21 AM EDT Pharmacy faxes requesting refill: Requested Prescriptions Pending Prescriptions Disp Refills verapamil SR (CALAN SR, ISOPTIN SR) 180 mg CR tablet [Pharmacy Med Name: VERAPAMIL ER TABS 180MG] 180 tablet 2 Sig: TAKE 1 TABLET TWICE A DAY WITH FOOD (CAN GET MORE REFILLS ONCE KEEP APPOINTMENT) Date of last visit:07/15/2022 Phone #: [phone] (home) [phone] (work) The patients preferred pharmacy has been captured for this encounter? yes [facility] Miscellaneous Notes* Telephone Encounter - Ankush Quintanilla MA - 07/21/2022 8:22 AM EDT IS THIS A CARDIAC MEDICATION: yes LAST OFFICE VISIT: 07/15/2022 (MUST SAY OFFICE VISIT NOT TELEPHONE ENCOUNTER) NEXT OFFICE VISIT: 07/19/2023 PATIENT MAY HAVE REFILLS UP TO ONE YEAR FROM LAST OFFICE VISIT HAS IT BEEN A YEAR SINCE PATIENT HAS BEEN SEEN? no IF IT HAS BEEN A YEAR THIS PATIENT NEEDS SCHEDULED. (AFTER PATIENT IS SCHEDULED FOR A FOLLOW UP THEY MAY HAVE A 30 DAY REFILL ONLY AT A LOCAL PHARMACY TO GET THEM TO THEIR APPOINTMENT.) Pharmacy faxes requesting refill: Requested Prescriptions Pending Prescriptions Disp Refills atenolol (TENORMIN) 50 mg tablet [Pharmacy Med Name: ATENOLOL TABS 50MG] 180 tablet 3 Sig: TAKE 1 TABLET TWICE A DAY Date of last visit:07/15/2022 Phone #: [phone] (home) [phone] (work) The patients preferred pharmacy has been captured for this encounter? yes documented in this encounterOhiohealth08-24-2022 NoteHNO ID: [id number] Author: Lucho Adames DO Service: ? Author Type: Physician Type: Progress Notes Filed: 07/16/2022 5:58 AM Note Text: Referring Provider: Lucho Adames DO Date: July 15, 2022 Chief Complaint: Follow Up HISTORY OF PRESENT ILLNESS: Ana Cristina Vang is a 62 year old female who presents for Follow Up. ALLERGIES No Known Allergies PAST MEDICAL HISTORY: PAST MEDICAL HISTORY Diagnosis Date Chest pain in adult Diverticular disease of colon Fatigue Heart valve disease History of echocardiogram 10/25/2006 normal L ventricular systolic size AND function 1+ mitral 1+ pulmonic regurg trace TR History of stress test 10/25/2006 normal perfusion no evidence of ischemia or infarction minimal septal hypokinesis EF 51% Kidney stones MVP (mitral valve prolapse) Palpitations SOB (shortness of breath) PAST SURGICAL HISTORY Procedure Laterality Date ABLATION of cervix ABLATION kidney stone LITHOTRIPSY / 1 SIDE 2013 TONSILLECTOMY HX FAMILY HISTORY Problem Relation Age of Onset other (pacemaker) Mother COPD Father other (family hx of CAD,DM) Other SOCIAL HISTORY: Tobacco Use: Never Alcohol Use: Not Currently Drug Use: Not on file Employer And Job Title: None on file Years Of Education Completed: Not specified Marital Status: MEDICATIONS: Current Outpatient Medications Medication Sig verapamil SR (CALAN SR, ISOPTIN SR) 180 mg CR tablet TAKE 1 TABLET TWICE A DAY WITH FOOD atenolol (TENORMIN) 50 mg tablet TAKE 1 TABLET TWICE A DAY loratadine (CLARITIN) 10 mg tablet Take 10 mg by mouth once daily. furosemide (LASIX) 20 mg tablet Take 20 mg by mouth once daily as needed. hyoscyamine (LEVSIN) 0.125 mg tablet Take 0.125 mg by mouth every 4 hours as needed. No current facility-administered medications for this visit. I have personally reviewed the patients past medical history including social, family, surgical, diagnostics, and medications. REVIEW OF SYSTEMS: Review of Systems Constitutional: Negative for fatigue and fever. Respiratory: Negative for cough, chest tightness, shortness of breath and wheezing. Cardiovascular: Negative for chest pain, palpitations and leg swelling. Gastrointestinal: Negative for abdominal pain, constipation, diarrhea, nausea and vomiting. Endocrine: Negative for cold intolerance and heat intolerance. Musculoskeletal: Negative for arthralgias and myalgias. Skin: Negative for rash. Neurological: Negative for dizziness, seizures, syncope and light-headedness. Hematological: Does not bruise/bleed easily. Vitals: BP 112/82 (BP Position: Sitting) Pulse 63 Ht 165.1 cm (5' 5) Wt 82.1 kg (181 lb) BMI 30.12 kg/m? PHYSICAL EXAMINATION: BP 112/82 (BP Position: Sitting) Pulse 63 Ht 165.1 cm (5' 5) Wt 82.1 kg (181 lb) BMI 30.12 kg/m? Last 3 Encounter BP Readings: Date: BP: 07/15/2022 112/82 07/02/2021 142/80 06/26/2020 125/80 Last 3 Encounter Pulse Readings: Date: Pulse: 07/15/2022 63 07/02/2021 61 Last 3 Encounter Wt Readings: Date: Wt: 07/15/2022 82.1 kg (181 lb) 07/02/2021 80.7 kg (178 lb) 06/26/2020 81.2 kg (179 lb) Physical Exam Vitals reviewed. Constitutional: General: She is not in acute distress. Cardiovascular: Rate and Rhythm: Normal rate and regular rhythm. Pulses: Carotid pulses are 2+ on the right side and 2+ on the left side. Radial pulses are 2+ on the right side and 2+ on the left side. Femoral pulses are 2+ on the right side and 2+ on the left side. Popliteal pulses are 2+ on the right side and 2+ on the left side. Dorsalis pedis pulses are 2+ on the right side and 2+ on the left side. Posterior tibial pulses are 2+ on the right side and 2+ on the left side. Heart sounds: Murmur heard. Systolic murmur is present with a grade of 2/6. Comments: PMI not displaced. 2nd heart sound loud. Pulmonary: Effort: Pulmonary effort is normal. Breath sounds: Normal breath sounds. Abdominal: General: Abdomen is flat. Bowel sounds are normal. Palpations: Abdomen is soft. Tenderness: There is no abdominal tenderness. Musculoskeletal: Right lower leg: No edema. Left lower leg: No edema. Skin: General: Skin is warm. Findings: No rash or wound. Neurological: Mental Status: She is alert and oriented to person, place, and time. Coordination: Coordination is intact. LABS: Creatinine (mg/dL) Date Value 04/06/2022 0.55 No results found for: HB, HCT, WBC No results found for: CHOL, HDL, LDL, TG EKG: DIAGNOSTIC TEST RESULTS: Recent Results (from the past 24 hour(s)) ECG COMPLETE Collection Time: 07/15/22 4:21 PM Result Value Ref Range Ventricular Rate 63 BPM Atrial Rate 63 BPM P-R Interval 192 ms QRS Duration 82 ms QT Interval 422 ms QTC Calculation (Bazett) 431 ms Calculated P [place] 63 degrees Calculated R [place] 71 degrees Calculated T [place] 116 degrees Narrativ (more content not included)...[facility]08-24-2022 History of Present illness Narrative* Lucho Adames DO - 07/15/2022 4:22 PM EDT Referring Provider: Lucho Adames DO Date: July 15, 2022 Chief Complaint: Follow Up HISTORY OF PRESENT ILLNESS: Ana Cristina Vang is a 62 year old female who presents for Follow Up. ALLERGIES No Known Allergies PAST MEDICAL HISTORY: PAST MEDICAL HISTORY Diagnosis Date Chest pain in adult Diverticular disease of colon Fatigue Heart valve disease History of echocardiogram 10/25/2006 normal L ventricular systolic size & function 1+ mitral 1+ pulmonic regurg trace TR History of stress test 10/25/2006 normal perfusion no evidence of ischemia or infarction minimal septal hypokinesis EF 51% Kidney stones MVP (mitral valve prolapse) Palpitations SOB (shortness of breath) PAST SURGICAL HISTORY Procedure Laterality Date ABLATION of cervix ABLATION kidney stone LITHOTRIPSY / SIDE 2013 TONSILLECTOMY HX FAMILY HISTORY Problem Relation Age of Onset other (pacemaker) Mother COPD Father other (family hx of CAD,DM) Other SOCIAL HISTORY: Tobacco Use: Never Alcohol Use: Not Currently Drug Use: Not on file Employer And Job Title: None on file Years Of Education Completed: Not specified Marital Status: MEDICATIONS: Current Outpatient Medications Medication Sig verapamil SR (CALAN SR, ISOPTIN SR) 180 mg CR tablet TAKE 1 TABLET TWICE A DAY WITH FOOD atenolol (TENORMIN) 50 mg tablet TAKE 1 TABLET TWICE A DAY loratadine (CLARITIN) 10 mg tablet Take 10 mg by mouth once daily. furosemide (LASIX) 20 mg tablet Take 20 mg by mouth once daily as needed. hyoscyamine (LEVSIN) 0.125 mg tablet Take 0.125 mg by mouth every 4 hours as needed. No current facility-administered medications for this visit. I have personally reviewed the patients past medical history including social, family, surgical, diagnostics, and medications. REVIEW OF SYSTEMS: Review of Systems Constitutional: Negative for fatigue and fever. Respiratory: Negative for cough, chest tightness, shortness of breath and wheezing. Cardiovascular: Negative for chest pain, palpitations and leg swelling. Gastrointestinal: Negative for abdominal pain, constipation, diarrhea, nausea and vomiting. Endocrine: Negative for cold intolerance and heat intolerance. Musculoskeletal: Negative for arthralgias and myalgias. Skin: Negative for rash. Neurological: Negative for dizziness, seizures, syncope and light-headedness. Hematological: Does not bruise/bleed easily. Vitals: BP 112/82 (BP Position: Sitting) Pulse 63 Ht 165.1 cm (5' 5) Wt 82.1 kg (181 lb) BMI 30.12kg/m PHYSICAL EXAMINATION: BP 112/82 (BP Position: Sitting) Pulse 63 Ht 165.1 cm (5' 5) Wt 82.1 kg (181 lb) BMI 30.12kg/m Last 3 Encounter BP Readings: Date: BP: 07/15/2022 112/82 07/02/2021 142/80 06/26/2020 125/80 Last 3 Encounter Pulse Readings: Date: Pulse: 07/15/2022 63 07/02/2021 61 Last 3 Encounter Wt Readings: Date: Wt: 07/15/2022 82.1 kg (181 lb) 07/02/2021 80.7 kg (178 lb) 06/26/2020 81.2 kg (179 lb) Physical Exam Vitals reviewed. Constitutional: General: She is not in acute distress. Cardiovascular: Rate and Rhythm: Normal rate and regular rhythm. Pulses: Carotid pulses are 2+ on the right side and 2+ on the left side. Radial pulses are 2+ on the right side and 2+ on the left side. Femoral pulses are 2+ on the right side and 2+ on the left side. Popliteal pulses are 2+ on the right side and 2+ on the left side. Dorsalis pedis pulses are 2+ on the right side and 2+ on the left side. Posterior tibial pulses are 2+ on the right side and 2+ on the left side. Heart sounds: Murmur heard. Systolic murmur is present with a grade of 2/6. Comments: PMI not displaced. 2nd heart sound loud. Pulmonary: Effort: Pulmonary effort is normal. Breath sounds: Normal breath sounds. Abdominal: General: Abdomen is flat. Bowel sounds are normal. Palpations: Abdomen is soft. Tenderness: There is no abdominal tenderness. Musculoskeletal: Right lower leg: No edema. Left lower leg: No edema. Skin: General: Skin is warm. Findings: No rash or wound. Neurological: Mental Status: She is alert and oriented to person, place, and time. Coordination: Coordination is intact. LABS: Creatinine (mg/dL) Date Value 04/06/2022 0.55 No results found for: HB, HCT, WBC No results found for: CHOL, HDL, LDL, TG EKG: DIAGNOSTIC TEST RESULTS: Recent Results (from the past 24 hour(s)) ECG COMPLETE Collection Time: 07/15/22 4:21 PM Result Value Ref Range Ventricular Rate 63 BPM Atrial Rate 63 BPM P-R Interval 192 ms QRS Duration 82 ms QT Interval 422 ms QTC Calculation (Bazett) 431 ms Calculated P [place] 63 degrees Calculated R [place] 71 degrees Calculated T [place] 116 degrees Narrative NAME : ANA CRISTINA VANG PID : [id number] : 1960 Gender : Female Race : ORD : [id number] Procedure Date : Jul 15 2022 16:21:07 Edit Date : Jul 15 2022 16:21:36 Diagnosis: NORMAL SINUS RHYTHM ST & ANTEROLATERAL T WAVE ABNORMALITY ABNORMAL ECG Test Reason : Location : [facility] : [facility] Overread By : , Edited By : , Referred By : LUCHO ADAMES Acquired by : [id number], Impression NORMAL SINUS RHYTHM ST & ANTEROLATERAL T WAVE ABNORMALITY ABNORMAL ECG ASSESSMENT/PLAN: 1. Heart valve disease - ICD9: 424.90, ICD10: I38 (primary diagnosis) normal L ventricular systolic size & function 1+ mitral 1+ pulmonic regurg trace TR left lower decubitus position there was a faint systolic murmur I believe much regurgitation and significant 2. Essential hypertension, benign - ICD9: 401.1, ICD10: I10 Target systolic BP 140 or less and diastolic BP 90 or less. - ECG COMPLETE today's EKG is sinus 3. History of stress test - ICD9: V15.89, ICD10: Z92.89 normal perfusion no evidence of ischemia or infarction minimal septal hypokinesis EF 51% 4. Non-smoker - ICD9: V49.89, ICD10: Z78.9 Pt has never been a smoker. I, Whit Guerra MA, scribing for Dr. Lucho Adames. Follow up in: Prior to entering the room, I reviewed the last progress note including the diagnosis and plan of action. When available, I then reviewed the last heart catheterization, stress test, echocardiogram and EKG. I proceeded to review the medial therapy and any side effects the patient may have had in the past. I was able to look at the last several EKGs. A new EKG was performed today and an interetation was performed. I reviewed its interpretation with the family and compared it to the previous EKGsthat we have in the medical records. Changes were described to the patient. In a pictorial format; I described the IL and QRS intervals. This was to show the effects of antiarrhythmic therapy on the e lectrical system. I was able to look at the past several EKG's. A new EKG was performed today and interpretation was noted. I reviewed this interpretation with the patient, and the family when available, and compared it to the previous EKG's that we have in the medical record. Since my office visit was carried out with a scribe, while in the exam room I was able to devote one hundred percent of my time in [id number] conversation with the patient. I answered all the questions and explained the diagnosis of hypertension. Greater that 51% of my time was spent with [id number] conversation with the patient. I have discussed the recommended treatment, alternative therapies and other options in detail. I've discussed the best benefit and side effects of these recommended treatments. I've attempted to answer all the questions to the patient's satisfaction and understanding. With approval, we would recommend an pursuethe current therapy such as no change. After leaving the exam room, I went back into the patient's chart and coordinated care with my nurse ordering the proper testing and medicinal changes. Letter was performed with voice recognition algorithms and sent to the referring team. The chart was completed. Including the pre-exam, exam and post- exam, the total time spent in the patient's management was greater than 15 minutes I, Dr. Lucho Adames, have reviewed and agree with the information in the medical record. Lucho Adames DO documented in this encounterOhiohealth05-16-2022 NoteHNO ID: [id number] Author: RT Otto(R) Service: ? Author Type: Rubber Cutter Type: Progress Notes Filed: 04/06/2022 3:45 PM Note Text: Radiology Service Progress Note DATE OF SERVICE: April 06, 2022 TIME: 3:44 PM PATIENT IDENTITY VERIFICATION COMPLETED USING TWO (2) STANDARD IDENTIFIERS: Name and Date of confirmed by patient verbally. FALL SCREENING: Has the patient had 2 falls in the last year or 1 fall with injury or currently using an Ambulatory Assistive Device (Walker, Cane, Wheelchair, Crutches, etc.)? No PATIENT GENDER DATA: Female. status: : No status: NO. PATIENT RELEVANT IMPLANT DATA REVIEWED: Yes ALLERGIES: Reviewed and unchanged CONTRAST ALLERGY: NO. EXAM: CT -CONTRAST INDUCED NEPHROPATHY RISK FACTORS: Patient age > 60 years CREATININE: Creatinine Date Value Ref Range Status 04/06/2022 0.55 (L) 0.58 - 0.96 mg/dL Final Estimated Glomerular Filtration Rate Date Value Ref Range Status 04/06/2022 104 >=60 mL/min/1.73m? Final Comment: Estimated Glomerular Filtration Rate (eGFR) is calculated using the 2020 CKD-EPI creatinine equation. This equation utilizes serum creatinine, sex, and age as parameters. The creatinine assay has traceable calibration to isotope dilution-mass spectrometry. Refer to KDIGO guidelines for clinical interpretation. In patients with unstable renal function, e.g. those with acute kidney injury, the eGFR may not accurately reflect actual GFR. P.O.C.T. RESULTS: POC done: Yes, See Lab Tab April 06, 2022 TREATMENT: N/A PERIPHERAL IV DATA: Ambulatory: A peripheral IV was started in the Left antecubital site with a Angio cath: 22 gauge. RADIOLOGY DEPARTMENT: CT; Exam(s) Completed: urogram SIGNATURE: RT Candida(R) PATIENT NAME: Ana Cristina Vang DATE: April 06, 2022 TIME: 3:44 [facility] Future Appointments Appointment Date:07/11/2025 03:30:00 PM Scheduled Provider:RAJAN PAN Location:[facility] Appointment Type:CV [facility] Evaluation + Plan note Future Appointments Appointment Date:10/11/2024 08:45:00 AM Scheduled Provider: Location:[facility] Appointment Type:PC Nurse Lab Appointment Date:10/18/2024 09:00:00 AM Scheduled Provider:RAMILA CHAPARRO Location:[facility] Appointment Type:PC OV Appointment Date:11/09/2024 08:30:00 AM Scheduled Provider: Location:[facility] Appointment Type:NUT Diet Visit Individual Appointment Date:07/11/2025 03:30:00 PM Scheduled Provider:RAJAN PAN Location:[facility] Appointment Type:CV OV Future Scheduled Tests Laboratory* A1C Hemoglobin 08/07/24 * Lipid Profile 08/07/24 * Complete Metabolic Panel 08/07/24 [facility] [place] + Plan note Future Appointments Appointment Date:10/18/2024 09:00:00 AM Scheduled Provider:RAMILA CHAPARRO Location:[facility] Appointment Type:PC OV Appointment Date:11/09/2024 08:30:00 AM Scheduled Provider: Location:[facility] Appointment Type:NUT Diet Visit Individual Appointment Date:07/11/2025 03:30:00 PM Scheduled Provider:RAJAN PAN Location:[facility] Appointment Type:CV OV Future Scheduled Tests Laboratory* A1C Hemoglobin 08/07/24 [facility] [employer] + Plan note Future Appointments Appointment Date:11/09/2024 08:30:00 AM Scheduled Provider: Location:[facility] Appointment Type:NUT Diet Visit Individual Appointment Date:01/29/2025 08:45:00 AM Scheduled Provider: Location:[facility] Appointment Type:PC Nurse Lab Appointment Date:02/07/2025 09:00:00 AM Scheduled Provider:RAMILA CHAPARRO Location:[facility] Appointment Type:PC OV Appointment Date:07/11/2025 03:30:00 PM Scheduled Provider:RAJAN PAN Location:[facility] Appointment Type:CV OV Future Scheduled Tests Laboratory* A1C Hemoglobin 01/18/25 * A1C Hemoglobin 08/07/24 * Lipid Profile 01/18/25 * Albumin/Creatinine Ratio, Random Urine 01/18/25 * Complete Metabolic Panel 01/18/25 [facility] [employer] + Plan note Future Appointments Appointment Date:05/16/2025 09:30:00 AM Scheduled Provider:RAMILA CHAPARRO Location:[facility] Appointment Type:PC OV Appointment Date:07/11/2025 03:30:00 PM Scheduled Provider:RAJAN PAN Location:[facility] Appointment Type:CV OV Future Scheduled Tests Laboratory* A1C Hemoglobin 08/07/24 Radiology* XR Chest 2 Views (PA & Lateral) 11/23/24 [facility] Evaluation + Plan note Future Appointments Appointment Date:10/03/2025 08:30:00 AM Scheduled Provider:RAMILA CHAPARRO Location:[facility] Appointment Type:PC Wellness Annual Appointment Date:07/17/2026 09:00:00 AM Scheduled Provider:RAJAN PAN Location:[facility] Appointment Type:CV OV Future Scheduled Tests Radiology* XR Chest 2 Views (PA & Lateral) 11/23/24 [facility] Evaluation noteNo assessment information available [facility] Work Phone: Evaluation note* Diagnosis Heart valve disease- Primary Endocarditis, valve unspecified, unspecified cause Essential hypertension, benign History of stress test Other specified conditions influencing health status Non-smoker Other specified conditions influencing health status [facility] Diagnosis Primary hypertension Unspecified essential hypertension documented in this encounter [facility] note* Diagnosis Onset Date Resolution Status Admit Date Flank pain acute July 25, 2025 9:14am History of kidney stones acute July 25, 2025 9:14am [facility] Work Phone: Hospital course Narrative No data available for this section [facility] Hospital Discharge instructions No data available for this section [facility] Progress note No data available for this section [facility] Reason for referral (narrative)* Outpatient Procedure (Routine) - Closed Specialty Diagnoses / Procedures Referred By Contac t Referred To [facility] Diagnoses Essential hypertension, benign Procedures ECG COMPLETE ECG ROUTINE ECG W/LEAST 12 LDS W/I&R Lucho Adames DO [address] [place] [address] [facility] [place] [address] [place] [address] Referral ID Status Reason Start Date Expiration Date V isits Requested Visits Authorized [id number] Closed Auto-Generate d Referral 07/09/2022 07/09/2023 1 1 [facility] for referral (narrative)No reason for referral [facility] Work Phone: Chief Complaint and Reason for Visit Chief Complaint KUB/KIDNEY STONE Chief Complaint KUB/KIDNEY STONE LT ESWL Chief Complaint KUB/KIDNEY STONE LT ESWL KUB- KIDNEY CALC. Chief Complaint Admit Date Back Pain & urine flow July 25 9:14am Reason for Visit Admit Date Flank pain July 25, 2025 9:14am History of kidney stones July 25, 2025 9:14am Advance Directives No Advanced Directives Records Found Advance Directive Response Recorded Date/ Time Name of Medical Power of Blowing [place] May 14, 2022 12:40pm Living Will Yes May 14, 2022 12:40pm Power of Blowing [place] Yes May 14 12:40pm Summary Purpose Family History No Family History Records FoundNo Family History Records FoundNo Family History Records Found No data available for this section No data available for this section No data available for this section No data available for this section No data available for this section No data available for this section No Family History Records FoundNo Family History Records Found No data available for this section No Family History Records Found Additional Source Comments Goals (unrecognized section and content) Goals may be documented in a n alternate sectionGoals may be documented in an alternate section No data available for this section No data available for this section No data available for this section No data available for this section No data available for this section No data available for this sectionGoals may be documented in an alternate section No data available for this section Source Comments (unrecognize d section and content) In the event this informatio n is protected by the Federal Confidentiality of Alcohol and Drug Abuse Patient Records regulations: The Federal rules restrict any use of the information to criminally investigate or prosecute any alcohol or drug abuse patient.OhiohealthIn the event this information is protected by the Federal Confidentiality of Alcohol and Drug Abuse Patient Records regulations: The Federal rules restrict any use of the information to criminally investigate or prosecute any alcohol or drug abuse patient.OhiohealthIn the event this information is protected by the Federal Confidentiality of Alcohol and Drug Abuse Patient Records regulations: The Federal rules restrict any use of the information to criminally investigate or prosecute any alcohol or drug abuse patient.OhiohealthIn the event this information is protected by the Federal Confidentiality of Alcohol and Drug Abuse Patient Records regulations: The Federal rules restrict any use of the information to criminally investigate or prosecute any alcohol or drug abuse patient.OhiohealthIn the event this information is protected by the Federal Confidentiality of Alcohol and Drug Abuse Patient Records regulations: The Federal rules restrict any use of the information to criminally investigate or prosecute any alcohol or drug abuse patient.[facility] Care Teams (unrecognized sec tion and content) Major Assembly Inspector Relationship Specialty Start Date End Date Kristi Serrano MD [address] [facility] [place] [address] [place] [address] PCP - General Family Practice 06/26/20 Major Assembly Inspector Relationship Specialty Start Date End Date Kristi Serrano MD [address] [place] [address] [address] [place], [place] [address] PCP - General Family Practice 06/26/20 Major Assembly Inspector Relationship Specialty Start Date End Date Kristi Serrano MD [address] [facility] [place] [address] [place] [address] PCP - General Family Practice 06/26/20 Major Assembly Inspector Relationship Specialty Start Date End Date Kristi Serrano MD [address] [place] [address] [address] [place], [place] [id number] PCP - General Family Practice 06/26/20 Major Assembly Inspector Relationship Specialty Start Date End Date Kristi Serrano MD [address] [facility] [address] [place], [place] [id number] PCP - General Family Medicine 06/26/20 Team Status: Inactive Member Role/Relationship Status Dates Dr. Beatrice Haynes MD Attending Provider Active Start: May 22, 2025 Team Status: Inactive Member Role/Relationship Status Dates Dr. Beatrice Haynes MD Attending Provider Active Start: July 25, 2025 End: July 25, 2025 INFORMATION SOURCE (unrecogn ized section and content) DATE CREATED AUTHOR 06/11/2022 [facility] herberth Dempsey DATE CREATED AUTHOR AUTHOR'S ORGANIZ ATION 07/27/2022 [facility] DATE CREATED AUTHOR AUTHOR'S ORGANIZ ATION 07/23/2024 [facility] ([place]) DATE CREATED AUTHOR AUTHOR'S ORGANIZ ATION 09/02/2025 [facility] DATE CREATED AUTHOR AUTHOR'S ORGANIZ ATION 09/27/[address] [facility] DATE CREATED AUTHOR AUTHOR'S ORGANIZ ATION 10/01/2025 [facility] Reason for Visit (unrecogniz ed section and content) Reason Comments Follow Up Reason Comments Refill Request FOR RECORDS PERTAINING TO PATIENTS WHO ARE OR HAVE BEEN ENROLLED IN A CHEMICAL DEPENDENCY/SUBSTANCEABUSE PROGRAM, SOME INFORMATION MAY BE OMITTED. This clinical summary was aggregated from multiple sources. Caution should be exercised in using it in the provision of clinical care. This summary normalizes information from multiple sources, and as a consequence, information in this document may materially change the coding, format and clinical context of patient data. In addition, data may be omitted in some cases. CLINICAL DECISIONS SHOULD BE BASED ON THE PRIMARY CLINICAL RECORDS. [facility]. provides no warranty or guarantee of the accuracy or completeness of information in this document.
== END | disposition home or self-care (01) ==
LOC: LABSPEC 17:58
PROVIDERS: PCP Nurse Practitioner Family; Referring Provider Urology; Visit Provider Urology
DX: R31.0 Gross hematuria (principal)
CPT/HCPCS: 88108; 88313